=== PATIENT | female | born 1995 | race Caucasian/White ===

== ENCOUNTER 2017-10-27 12:53 | Inpatient (IN) ==
[2017-10-27] MEDS ORDERED: Ondansetron 4 MG/2 ML VIAL IVP ONE (13:13)
[2017-10-27] MEDS ORDERED: 0.9 % Sodium Chloride 1,000 ML ONE (13:14)
[2017-10-27] MEDS: 0.9 % Sodium Chloride 1,000 ML IVC SCH ×3 (13:18→20:04)
--- NOTE | 2017-10-27 13:18 | Emergency Department Note ---
Disposition Clinical Impression: DKA (diabetic ketoacidoses) Disposition: Admitted As Inpatient Condition: Fair General Adult HPI - General Chief complaint: ED Nausea/Vomiting/Diarrhea Stated complaint: DKA Time Seen by Provider: 10/27/17 13:00 - History of Present Illness Pain Scale: 0 - Related Data Home Medications Medication Instructions Recorded Confirmed Insulin ASPART [Novolog Flexpen] 0 unit SQ TID 11/26/15 10/27/17 Insulin Glargine,Hum.rec.anlog 50 unit SQ QPM 10/27/17 10/27/17 [Basaglar Kwikpen U-100] Allergies Allergy/AdvReac Type Severity Reaction Status Date / Time trazodone Allergy See Verified 11/26/15 09:51 Comments Past Medical History - Past Medical History Medical history: Reports: diabetes, GERD Psychiatric history: Reports: anxiety, ADHD, depression - Social History Smoking Status: Never smoker Alcohol use: Reports: none Drug use: Reports: none Course Vital Signs Temperature 97.8 F 10/27/17 12:55 Pulse Rate 136 10/27/17 12:55 Respiratory Rate 26 10/27/17 12:55 Blood Pressure 138/97 10/27/17 12:55 O2 Sat by Pulse Oximetry 96 10/27/17 12:55 Temperature 99.2 F 10/27/17 20:41 Pulse Rate 115 10/27/17 19:03 Respiratory Rate 18 10/27/17 19:03 Blood Pressure 121/83 10/27/17 19:03 O2 Sat by Pulse Oximetry 100 10/27/17 19:03 Oxygen Delivery Oxygen Delivery Room Air Medical Decision Making - Lab Data Result diagrams: 10/27/17 13:11 10/27/17 17:41 Lab Results 10/27/17 10/27/17 10/27/17 Range/Units 13:11 13:11 13:11 WBC 25.6 H (4.3-11.1) K/mcL RBC 4.76 (3.82-4.97) M/mcL Hgb 14.4 (11.5-15.4) g/dL Hct 46.5 H (35.3-44.9) % MCV 97.7 (83.0-100.0) fL MCH 30.3 (28.0-33.3) pg MCHC 31.0 L (31.6-35.5) g/dL RDW 13.2 (11.5-14.5) % Plt Count 690 H (140-400) K/mcL MPV 8.9 L (9.4-12.4) fL Seg Neutrophils % 72.0 % Band Neutrophils % 8.0 H (0-4) % Lymphocytes % 10.0 % Monocytes % 2.0 % Eosinophils % 2.0 % Metamyelocytes % 4.0 H (0) % Myelocytes % 2.0 H (0) % Neutrophils # 20.5 H (1.6-8.9) K/mcL Lymphocytes # 2.6 (0.6-4.6) K/mcL Monocytes # 0.5 (0.0-1.3) K/mcL Eosinophils # 0.5 (0.0-0.6) K/mcL Toxic Vacuolation Present A (Not Present) Platelet Estimate Marked Increase H (Normal) VBG pH (7.32-7.42) pH Units VBG pCO2 (41-51) mmHg VBG pO2 (25-50) mmHg VBG HCO3 (21-27) mEq/L Sodium 131 L (136-145) mEq/L Potassium 5.1 (3.5-5.1) mEq/L Chloride 97 L (98-107) mEq/L Carbon Dioxide 4 L* (23-29) mEq/L BUN 19 (6-20) mg/dL Creatinine 0.97 (0.60-1.20) mg/dL Est GFR ( Amer) > 60 (> 60) Est GFR (Non-Af Amer) > 60 (> 60) BUN/Creatinine Ratio 20 (6-26) Glucose 797 H* (70-105) mg/dL POC Glucose (70-99) mg/dL Est Mean Plasma Glucose mg/dl Hemoglobin A1c ( - 5.6) % Calculated Osmolality 313 H (280-300) Lactic Acid (0.5-2.2) mmol/L Calcium 9.0 (8.6-10.3) mg/dL Total Bilirubin 0.2 L (0.3-1.0) mg/dL AST 18 (13-39) Units/L ALT 35 (7-52) Units/L Alkaline Phosphatase 187 H (34-104) Units/L Serum Total Protein 8.2 (6.4-8.9) g/dL Albumin 4.6 (3.5-5.7) g/dL Globulin 3.6 H (2.4-3.5) g/dL Albumin/Globulin Ratio 1.3 (1.1-2.2) Beta-Hydroxybutyric Acd > 2.00 H (0.02-0.27) mmol/L Urine Color (Yellow) Urine Clarity (Clear) Urine pH (5.0-8.0) pH Units Ur Specific [place] (1.010-1.025) Urine Protein (Neg-Trace) mg/dL Urine Glucose (UA) (Normal) mg/dL Urine Ketones (Negative) mg/dL Urine Blood (Negative) Urine Nitrite (Negative) Urine Bilirubin (Negative) Urine Urobilinogen (Normal) mg/dL Ur Leukocyte Esterase (Negative) Urine Microscopic RBC (0-3) per hpf Urine Microscopic WBC (0-3) per hpf Ur Squamous Epith Cells (None-Few) per lpf Urine Bacteria (None-Few) per hpf Hyaline Casts (None-Few) per lpf Ur Culture Indicated? (NO) Person Notif of Crit 10/27/17 10/27/17 10/27/17 Range/Units 13:15 13:16 13:16 WBC (4.3-11.1) K/mcL RBC (3.82-4.97) M/mcL Hgb (11.5-15.4) g/dL Hct (35.3-44.9) % MCV (83.0-100.0) fL MCH (28.0-33.3) pg MCHC (31.6-35.5) g/dL RDW (11.5-14.5) % Plt Count (140-400) K/mcL MPV (9.4-12.4) fL Seg Neutrophils % % Band Neutrophils % (0-4) % Lymphocytes % % Monocytes % % Eosinophils % % Metamyelocytes % (0) % Myelocytes % (0) % Neutrophils # (1.6-8.9) K/mcL Lymphocytes # (0.6-4.6) K/mcL Monocytes # (0.0-1.3) K/mcL Eosinophils # (0.0-0.6) K/mcL Toxic Vacuolation (Not Present) Platelet Estimate (Normal) VBG pH (7.32-7.42) pH Units VBG pCO2 (41-51) mmHg VBG pO2 (25-50) mmHg VBG HCO3 (21-27) mEq/L Sodium (136-145) mEq/L Potassium (3.5-5.1) mEq/L Chloride (98-107) mEq/L Carbon Dioxide (23-29) mEq/L BUN (6-20) mg/dL Creatinine (0.60-1.20) mg/dL Est GFR ( Amer) (> 60) Est GFR (Non-Af Amer) (> 60) BUN/Creatinine Ratio (6-26) Glucose (70-105) mg/dL POC Glucose > 600 H* > 600 H* (70-99) mg/dL Est Mean Plasma Glucose mg/dl Hemoglobin A1c ( - 5.6) % Calculated Osmolality (280-300) Lactic Acid 1.3 (0.5-2.2) mmol/L Calcium (8.6-10.3) mg/dL Total Bilirubin (0.3-1.0) mg/dL AST (13-39) Units/L ALT (7-52) Units/L Alkaline Phosphatase (34-104) Units/L Serum Total Protein (6.4-8.9) g/dL Albumin (3.5-5.7) g/dL Globulin (2.4-3.5) g/dL Albumin/Globulin Ratio (1.1-2.2) Beta-Hydroxybutyric Acd (0.02-0.27) mmol/L Urine Color (Yellow) Urine Clarity (Clear) Urine pH (5.0-8.0) pH Units Ur Specific [place] (1.010-1.025) Urine Protein (Neg-Trace) mg/dL Urine Glucose (UA) (Normal) mg/dL Urine Ketones (Negative) mg/dL Urine Blood (Negative) Urine Nitrite (Negative) Urine Bilirubin (Negative) Urine Urobilinogen (Normal) mg/dL Ur Leukocyte Esterase (Negative) Urine Microscopic RBC (0-3) per hpf Urine Microscopic WBC (0-3) per hpf Ur Squamous Epith Cells (None-Few) per lpf Urine Bacteria (None-Few) per hpf Hyaline Casts (None-Few) per lpf Ur Culture Indicated? (NO) Person Notif of Crit 10/27/17 10/27/17 10/27/17 Range/Units 13:30 14:12 15:56 WBC (4.3-11.1) K/mcL RBC (3.82-4.97) M/mcL Hgb (11.5-15.4) g/dL Hct (35.3-44.9) % MCV (83.0-100.0) fL MCH (28.0-33.3) pg MCHC (31.6-35.5) g/dL RDW (11.5-14.5) % Plt Count (140-400) K/mcL MPV (9.4-12.4) fL Seg Neutrophils % % Band Neutrophils % (0-4) % Lymphocytes % % Monocytes % % Eosinophils % % Metamyelocytes % (0) % Myelocytes % (0) % Neutrophils # (1.6-8.9) K/mcL Lymphocytes # (0.6-4.6) K/mcL Monocytes # (0.0-1.3) K/mcL Eosinophils # (0.0-0.6) K/mcL Toxic Vacuolation (Not Present) Platelet Estimate (Normal) VBG pH 7.01 L* (7.32-7.42) pH Units VBG pCO2 14 L (41-51) mmHg VBG pO2 163 H (25-50) mmHg VBG HCO3 3 L (21-27) mEq/L Sodium (136-145) mEq/L Potassium (3.5-5.1) mEq/L Chloride (98-107) mEq/L Carbon Dioxide (23-29) mEq/L BUN (6-20) mg/dL Creatinine (0.60-1.20) mg/dL Est GFR ( Amer) (> 60) Est GFR (Non-Af Amer) (> 60) BUN/Creatinine Ratio (6-26) Glucose (70-105) mg/dL POC Glucose 422 H* (70-99) mg/dL Est Mean Plasma Glucose mg/dl Hemoglobin A1c ( - 5.6) % Calculated Osmolality (280-300) Lactic Acid (0.5-2.2) mmol/L Calcium (8.6-10.3) mg/dL Total Bilirubin (0.3-1.0) mg/dL AST (13-39) Units/L ALT (7-52) Units/L Alkaline Phosphatase (34-104) Units/L Serum Total Protein (6.4-8.9) g/dL Albumin (3.5-5.7) g/dL Globulin (2.4-3.5) g/dL Albumin/Globulin Ratio (1.1-2.2) Beta-Hydroxybutyric Acd (0.02-0.27) mmol/L Urine Color Yellow (Yellow) Urine Clarity Clear (Clear) Urine pH 5.5 (5.0-8.0) pH Units Ur Specific [place] 1.029 H (1.010-1.025) Urine Protein 30 H (Neg-Trace) mg/dL Urine Glucose (UA) >=1000 H (Normal) mg/dL Urine Ketones >=160 H (Negative) mg/dL Urine Blood Negative (Negative) Urine Nitrite Negative (Negative) Urine Bilirubin Negative (Negative) Urine Urobilinogen Normal (Normal) mg/dL Ur Leukocyte Esterase Negative (Negative) Urine Microscopic RBC 0-3 (0-3) per hpf Urine Microscopic WBC 0-3 (0-3) per hpf Ur Squamous Epith Cells Moderate H (None-Few) per lpf Urine Bacteria None Seen (None-Few) per hpf Hyaline Casts None Seen (None-Few) per lpf Ur Culture Indicated? NO (NO) Person Notif of Gonzalo weston shelly 10/27/17 Range/Units 17:07 WBC (4.3-11.1) K/mcL RBC (3.82-4.97) M/mcL Hgb (11.5-15.4) g/dL Hct (35.3-44.9) % MCV (83.0-100.0) fL MCH (28.0-33.3) pg MCHC (31.6-35.5) g/dL RDW (11.5-14.5) % Plt Count (140-400) K/mcL MPV (9.4-12.4) fL Seg Neutrophils % % Band Neutrophils % (0-4) % Lymphocytes % % Monocytes % % Eosinophils % % Metamyelocytes % (0) % Myelocytes % (0) % Neutrophils # (1.6-8.9) K/mcL Lymphocytes # (0.6-4.6) K/mcL Monocytes # (0.0-1.3) K/mcL Eosinophils # (0.0-0.6) K/mcL Toxic Vacuolation (Not Present) Platelet Estimate (Normal) VBG pH (7.32-7.42) pH Units VBG pCO2 (41-51) mmHg VBG pO2 (25-50) mmHg VBG HCO3 (21-27) mEq/L Sodium (136-145) mEq/L Potassium (3.5-5.1) mEq/L Chloride (98-107) mEq/L Carbon Dioxide (23-29) mEq/L BUN (6-20) mg/dL Creatinine (0.60-1.20) mg/dL Est GFR ( Amer) (> 60) Est GFR (Non-Af Amer) (> 60) BUN/Creatinine Ratio (6-26) Glucose (70-105) mg/dL POC Glucose (70-99) mg/dL Est Mean Plasma Glucose 346 mg/dl Hemoglobin A1c 13.7 H ( - 5.6) % Calculated Osmolality (280-300) Lactic Acid (0.5-2.2) mmol/L Calcium (8.6-10.3) mg/dL Total Bilirubin (0.3-1.0) mg/dL AST (13-39) Units/L ALT (7-52) Units/L Alkaline Phosphatase (34-104) Units/L Serum Total Protein (6.4-8.9) g/dL Albumin (3.5-5.7) g/dL Globulin (2.4-3.5) g/dL Albumin/Globulin Ratio (1.1-2.2) Beta-Hydroxybutyric Acd (0.02-0.27) mmol/L Urine Color (Yellow) Urine Clarity (Clear) Urine pH (5.0-8.0) pH Units Ur Specific [place] (1.010-1.025) Urine Protein (Neg-Trace) mg/dL Urine Glucose (UA) (Normal) mg/dL Urine Ketones (Negative) mg/dL Urine Blood (Negative) Urine Nitrite (Negative) Urine Bilirubin (Negative) Urine Urobilinogen (Normal) mg/dL Ur Leukocyte Esterase (Negative) Urine Microscopic RBC (0-3) per hpf Urine Microscopic WBC (0-3) per hpf Ur Squamous Epith Cells (None-Few) per lpf Urine Bacteria (None-Few) per hpf Hyaline Casts (None-Few) per lpf Ur Culture Indicated? (NO) Person Notif of Crit Critical Care Time Critical Care Time: Yes Total Critical Care Time: 40 Attestation: Critical care performed: Time is exclusive of separately billable procedures. Time includes: direct patient care, patient reassessment, coordination of patient care, interpretation of data (laboratory data, radiology data, and respiratory data), review of patient's medical records, medical consultation and documentation of patient care. Procedures included in critical care time: Procedures excluded from critical care time: Attestation Statement - Attestation Attestation: I examined this patient and my medical decision-making was reviewed with the Resident Physician. I agree with the documented findings, disposition and treatment plan as described except to the extent set forth below. Patient presents to the ED with a chief complaint of being in DKA. Her blood sugars are running high for 2 days. She started hallucinating last night. Last admission was recently but family cannot state when. At [facility]. On examination she is laying in bed in no distress. She is tachypneic. She does answer questions appropriately. Denies fever. Plan. DKA workup. Starting IV fluids at this time. Likely admission. PH 7.01. Starting insulin drip. Leukocytosis likely reactive. We will check blood culture chest x-ray and a UA.
[2017-10-27 13:29] LABS: Mean Platelet Volume 8.9 fL (9.4-12.4); Red Cell Distribution Width 13.2 % (11.5-14.5)
[2017-10-27 13:31] LABS: Hematocrit 46.5 % (35.3-44.9); Hemoglobin 14.4 g/dL (11.5-15.4); Mean Corpuscular Hemoglobin 30.3 pg (28.0-33.3); Mean Corpuscular Volume 97.7 fL (83.0-100.0); Platelet Count 690 K/mcL (140-400); Red Blood Count 4.76 M/mcL (3.82-4.97)
[2017-10-27 13:49] LABS: VBG HCO3 3 mEq/L (21-27); VBG PCO2 14 mmHg (41-51); VBG PH 7.01 pH Units (7.32-7.42); VBG PO2 163 mmHg (25-50)
[2017-10-27] MEDS ORDERED: *HR* Dextrose 50 % in Water (Syg) 50 ML SYRINGE IVP PRN ×2 (13:51→17:04)
[2017-10-27] MEDS ORDERED: Insulin Regular, Human 100 UNIT/ML IV ONE (13:51)
[2017-10-27 13:53] LABS: Eosinophils # 0.5 K/mcL (0.0-0.6); Lymphocytes # 2.6 K/mcL (0.6-4.6); Monocytes # 0.5 K/mcL (0.0-1.3); Neutrophils # 20.5 K/mcL (1.6-8.9); Toxic Vacuolation Present (Not Present)
[2017-10-27 13:54] LABS: Platelet Estimate Marked Increase (Normal)
[2017-10-27 13:57] LABS: Alanine Aminotransferase 35 Units/L (7-52); Albumin 4.6 g/dL (3.5-5.7); Albumin/Globulin Ratio 1.3 (1.1-2.2); Alkaline Phosphatase 187 Units/L (34-104); Aspartate Amino Transferase 18 Units/L (13-39); BUN/Creatinine Ratio 20 (6-26); Bilirubin,Total 0.2 mg/dL (0.3-1.0); Blood Urea Nitrogen 19 mg/dL (6-20); Carbon Dioxide 4 mEq/L (23-29); Chloride 97 mEq/L (98-107); Globulin 3.6 g/dL (2.4-3.5); Glucose 797 mg/dL (70-105); Osmolality,Calculated 313 (280-300); Potassium 5.1 mEq/L (3.5-5.1); Sodium 131 mEq/L (136-145); Total Protein 8.2 g/dL (6.4-8.9); eGFR For African Americans > 60 (> 60); eGFR For Non-African Americans > 60 (> 60)
[2017-10-27 14:24] LABS: Bilirubin,Urine Negative (Negative); Blood,Urine Negative (Negative); Clarity,Urine Clear (Clear); Color,Urine Yellow (Yellow); Glucose,Urine (UA) >=1000 mg/dL (Normal); Ketones,Urine >=160 mg/dL (Negative); Leukocyte Esterase,Urine Negative (Negative); Nitrite,Urine Negative (Negative); PH,Urine 5.5 pH Units (5.0-8.0); Protein,Urine 30 mg/dL (Neg-Trace); Specific Gravity,Urine 1.029 (1.010-1.025); Urobilinogen,Urine Normal (Normal)
[2017-10-27 14:26] LABS: Bacteria,Urine None Seen per hpf (None-Few); Hyaline Casts,Urine None Seen per lpf (None-Few); RBC,Urine 0-3 per hpf (0-3); Squamous Epithelial Cell,Urine Moderate per lpf (None-Few); WBC,Urine 0-3 per hpf (0-3)
--- NOTE | 2017-10-27 14:34 | Emergency Department Note ---
Disposition Clinical Impression: DKA (diabetic ketoacidoses) Qualifiers: Diabetes mellitus type: type 1 Diabetes mellitus complication detail: without coma Qualified Code(s): E10.10 - Type 1 diabetes mellitus with ketoacidosis without coma Disposition: Admitted As Inpatient Condition: Fair Referrals: Leana Peck CNP [Primary Care Provider] - Forms: ED Satisfaction Letter Time of Disposition: 14:39 Nausea/Vomiting/Diarrhea HPI - General Chief complaint: ED Nausea/Vomiting/Diarrhea Stated complaint: DKA Time Seen by Provider: 10/27/17 13:00 Source: patient, family (Mom) Mode of arrival: ambulatory Limitations: no limitations Nursing Notes Reviewed: Yes Vital Signs Reviewed: Yes - History of Present Illness HPI Narrative: 22-year-old female history of type I insulin-dependent diabetes mellitus presents emergency department for elevated blood sugar. Patient reports over the past 2 days she has had high blood glucose readings. Today she is been gradually more nauseated with some abdominal pain. She tested her ketones in the was positive. There concern for diabetic ketoacidosis. She has required a prior admission, most recent month ago at outside facility. Patient denies any fever or cough. She typically carb counts a once every 4. She takes about 40 units of basal insulin. She admits to a poor diabetic diet. Her glucose today red high. It has been reading high for the past 2 days as well. Denies any urinary symptoms. Denies any injury or trauma. Patient is having Kussmaul breathing. Pt Subjective Complaint: nausea, abdominal pain - Related Data Home Medications Medication Instructions Recorded Confirmed Albuterol Sulfate [Ventolin Hfa] 2 puff IH Q4-6H PRN 11/26/15 11/26/15 Cyanocobalamin (Vitamin B-12) 1,000 mcg PO DAILY 11/26/15 11/26/15 [Vitamin B12] Escitalopram [Lexapro] 10 mg PO DAILY 11/26/15 11/26/15 Famotidine [Pepcid] 20 mg PO BID 11/26/15 11/26/15 Insulin ASPART [Novolog Flexpen] 0 unit SQ AD 11/26/15 11/26/15 Lisinopril 2.5 mg PO DAILY 11/26/15 11/26/15 Ondansetron [Zofran] 8 mg PO Q8HR PRN 11/26/15 11/26/15 Previous Rx's Medication Instructions Recorded Escitalopram [Lexapro] 5 mg PO DAILY tablet 11/27/15 Insulin DETEMIR [Levemir] 25 unit SQ BID [id number] 11/27/15 valACYclovir [Valtrex] 1,000 mg PO BID tablet 11/27/15 Ondansetron ODT [Zofran ODT] 4 mg SL Q6HR PRN #20 tab.rapdis 07/22/17 Allergies Allergy/AdvReac Type Severity Reaction Status Date / Time trazodone Allergy See Verified 11/26/15 09:51 Comments All systems ED: reviewed and negative except as stated. Review of Systems: As Per HPI Constitutional: Denies: fever, chills ENT ED: Denies: congestion Cardiovascular: Denies: chest pain Respiratory: Denies: cough, dyspnea Gastrointestinal: Reports: abdominal pain, nausea, vomiting Genitourinary: Denies: urgency, dysuria Musculoskeletal: Denies: back pain Integumentary: Denies: rash, abrasion Past Medical History - Past Medical History Attestation: Yes The following information was validated with the patient. Source: patient Medical history: Reports: diabetes, GERD Psychiatric history: Reports: anxiety, ADHD, depression - Social History Smoking Status: Never smoker Alcohol use: Reports: none Drug use: Reports: none Physical Exam - General Limitations: no limitations General appearance: alert, in distress (Kussmaul respirations) - Head Head exam: atraumatic, normocephalic, normal inspection - Eye Eye exam: Present: normal appearance, PERRL, EOMI - ENT ENT exam: normal exam, normal oropharynx, mucous membranes moist - Neck Neck exam: Present: normal inspection, full ROM, trachea midline. Absent: tenderness, meningismus - Chest Chest inspection: Present: normal inspection, symmetric chest wall rise - Respiratory Respiratory exam: Present: normal lung sounds bilaterally, respiratory distress (Kussmaul respiration). Absent: wheezes - Cardiovascular Cardiovascular exam: Present: normal rhythm, tachycardia, normal heart sounds - Abdominal Exam Abdominal exam: Present: soft, tenderness, normal bowel sounds. Absent: distention, guarding, rebound, rigidity Abdominal tenderness: Present: diffuse - Extremities Exam Extremities exam: Present: normal inspection, full ROM, normal capillary refill. Absent: tenderness, pedal edema, calf tenderness - Back Exam Back exam: Present: normal inspection, full ROM. Absent: tenderness - Neurological Exam Neurological exam: Present: alert, oriented X3 - Psychiatric Psychiatric exam: Present: normal affect, normal mood - Skin Skin exam: Present: warm, dry, intact, normal color. Absent: rash, cyanosis, diaphoresis Course Course Narrative: Patient presents with Kussmaul respirations and elevated glucose at home. Concerning for DKA. Will initiate IV fluid check some labs for suspected diabetic ketoacidosis. She denies any recent illness. Patient has required admission recently for similar symptoms. Anticipate likely admission. - Reevaluation(s) Reevaluation #1: Glucose 797. Metabolic acidosis anion gap 30. Bicarbonates low at 3. Potassium is near normal 5.1. Patient has been given to liter normal saline bolus and will be initiated on insulin drip with bolus. She reports improvement of her nausea after Zofran. She continues to display Kussmaul respirations. Her leukocytosis is 25 and likely reactive, she is afebrile and slightly tachycardic we will evaluate with blood culture, chest x-ray and urinalysis to rule out possible infection. Suspect DKA likely secondary to noncompliance. Patient will require admission. Time: 14:38 - Consultations Consultation #1: Spoke with on-call hospitalist kindra Deluca to admit for DKA. He is aware of the severe metabolic acidosis with bicarb lesson 4, recommend to give multiple amps of Bicarb. Since otherwise stable for step down unit 2N. She continues to have Kussmaul respirations but is awake and alert. Time: 15:12 Vital Signs Temperature 97.8 F 10/27/17 12:55 Pulse Rate 136 10/27/17 12:55 Respiratory Rate 26 10/27/17 12:55 Blood Pressure 138/97 10/27/17 12:55 O2 Sat by Pulse Oximetry 96 10/27/17 12:55 Temperature 97.8 F 10/27/17 15:03 Pulse Rate 131 10/27/17 15:03 Respiratory Rate 26 10/27/17 15:03 Blood Pressure 142/81 10/27/17 15:03 O2 Sat by Pulse Oximetry 97 10/27/17 15:03 Oxygen Delivery Oxygen Delivery Room Air Nausea/Vomiting/Diarrhea - MDM Narrative Medical decision making narrative: Patient was discussed with my attending physician who agrees with ED management and final disposition. They independently evaluated the patient. Please refer to their attestation to this encounter for additional information. This note was generated by [employer] voice recognition software and as a result grammatical or spelling errors may occur using this program. - Medical Records Medical records reviewed: Yes I reviewed the patient's medical records. - Lab Data Lab results reviewed: Yes I reviewed the patient's lab results. Result diagrams: 10/27/17 13:11 10/27/17 13:11 Lab Results 10/27/17 10/27/17 10/27/17 Range/Units 13:11 13:11 13:11 WBC 25.6 H (4.3-11.1) K/mcL RBC 4.76 (3.82-4.97) M/mcL Hgb 14.4 (11.5-15.4) g/dL Hct 46.5 H (35.3-44.9) % MCV 97.7 (83.0-100.0) fL MCH 30.3 (28.0-33.3) pg MCHC 31.0 L (31.6-35.5) g/dL RDW 13.2 (11.5-14.5) % Plt Count 690 H (140-400) K/mcL MPV 8.9 L (9.4-12.4) fL Seg Neutrophils % 72.0 % Band Neutrophils % 8.0 H (0-4) % Lymphocytes % 10.0 % Monocytes % 2.0 % Eosinophils % 2.0 % Metamyelocytes % 4.0 H (0) % Myelocytes % 2.0 H (0) % Neutrophils # 20.5 H (1.6-8.9) K/mcL Lymphocytes # 2.6 (0.6-4.6) K/mcL Monocytes # 0.5 (0.0-1.3) K/mcL Eosinophils # 0.5 (0.0-0.6) K/mcL Toxic Vacuolation Present A (Not Present) Platelet Estimate Marked Increase H (Normal) VBG pH (7.32-7.42) pH Units VBG pCO2 (41-51) mmHg VBG pO2 (25-50) mmHg VBG HCO3 (21-27) mEq/L Sodium 131 L (136-145) mEq/L Potassium 5.1 (3.5-5.1) mEq/L Chloride 97 L (98-107) mEq/L Carbon Dioxide 4 L* (23-29) mEq/L BUN 19 (6-20) mg/dL Creatinine 0.97 (0.60-1.20) mg/dL Est GFR ( Amer) > 60 (> 60) Est GFR (Non-Af Amer) > 60 (> 60) BUN/Creatinine Ratio 20 (6-26) Glucose 797 H* (70-105) mg/dL Calculated Osmolality 313 H (280-300) Lactic Acid (0.5-2.2) mmol/L Calcium 9.0 (8.6-10.3) mg/dL Total Bilirubin 0.2 L (0.3-1.0) mg/dL AST 18 (13-39) Units/L ALT 35 (7-52) Units/L Alkaline Phosphatase 187 H (34-104) Units/L Serum Total Protein 8.2 (6.4-8.9) g/dL Albumin 4.6 (3.5-5.7) g/dL Globulin 3.6 H (2.4-3.5) g/dL Albumin/Globulin Ratio 1.3 (1.1-2.2) Beta-Hydroxybutyric Acd > 2.00 H (0.02-0.27) mmol/L Urine Color (Yellow) Urine Clarity (Clear) Urine pH (5.0-8.0) pH Units Ur Specific [place] (1.010-1.025) Urine Protein (Neg-Trace) mg/dL Urine Glucose (UA) (Normal) mg/dL Urine Ketones (Negative) mg/dL Urine Blood (Negative) Urine Nitrite (Negative) Urine Bilirubin (Negative) Urine Urobilinogen (Normal) mg/dL Ur Leukocyte Esterase (Negative) Urine Microscopic RBC (0-3) per hpf Urine Microscopic WBC (0-3) per hpf Ur Squamous Epith Cells (None-Few) per lpf Urine Bacteria (None-Few) per hpf Hyaline Casts (None-Few) per lpf Ur Culture Indicated? (NO) Person Notif of Crit 10/27/17 10/27/17 10/27/17 Range/Units 13:16 13:30 14:12 WBC (4.3-11.1) K/mcL RBC (3.82-4.97) M/mcL Hgb (11.5-15.4) g/dL Hct (35.3-44.9) % MCV (83.0-100.0) fL MCH (28.0-33.3) pg MCHC (31.6-35.5) g/dL RDW (11.5-14.5) % Plt Count (140-400) K/mcL MPV (9.4-12.4) fL Seg Neutrophils % % Band Neutrophils % (0-4) % Lymphocytes % % Monocytes % % Eosinophils % % Metamyelocytes % (0) % Myelocytes % (0) % Neutrophils # (1.6-8.9) K/mcL Lymphocytes # (0.6-4.6) K/mcL Monocytes # (0.0-1.3) K/mcL Eosinophils # (0.0-0.6) K/mcL Toxic Vacuolation (Not Present) Platelet Estimate (Normal) VBG pH 7.01 L* (7.32-7.42) pH Units VBG pCO2 14 L (41-51) mmHg VBG pO2 163 H (25-50) mmHg VBG HCO3 3 L (21-27) mEq/L Sodium (136-145) mEq/L Potassium (3.5-5.1) mEq/L Chloride (98-107) mEq/L Carbon Dioxide (23-29) mEq/L BUN (6-20) mg/dL Creatinine (0.60-1.20) mg/dL Est GFR ( Amer) (> 60) Est GFR (Non-Af Amer) (> 60) BUN/Creatinine Ratio (6-26) Glucose (70-105) mg/dL Calculated Osmolality (280-300) Lactic Acid 1.3 (0.5-2.2) mmol/L Calcium (8.6-10.3) mg/dL Total Bilirubin (0.3-1.0) mg/dL AST (13-39) Units/L ALT (7-52) Units/L Alkaline Phosphatase (34-104) Units/L Serum Total Protein (6.4-8.9) g/dL Albumin (3.5-5.7) g/dL Globulin (2.4-3.5) g/dL Albumin/Globulin Ratio (1.1-2.2) Beta-Hydroxybutyric Acd (0.02-0.27) mmol/L Urine Color Yellow (Yellow) Urine Clarity Clear (Clear) Urine pH 5.5 (5.0-8.0) pH Units Ur Specific [place] 1.029 H (1.010-1.025) Urine Protein 30 H (Neg-Trace) mg/dL Urine Glucose (UA) >=1000 H (Normal) mg/dL Urine Ketones >=160 H (Negative) mg/dL Urine Blood Negative (Negative) Urine Nitrite Negative (Negative) Urine Bilirubin Negative (Negative) Urine Urobilinogen Normal (Normal) mg/dL Ur Leukocyte Esterase Negative (Negative) Urine Microscopic RBC 0-3 (0-3) per hpf Urine Microscopic WBC 0-3 (0-3) per hpf Ur Squamous Epith Cells Moderate H (None-Few) per lpf Urine Bacteria None Seen (None-Few) per hpf Hyaline Casts None Seen (None-Few) per lpf Ur Culture Indicated? NO (NO) Person Notif of Gonzalo bravo - Radiology Data Radiology results reviewed: Yes I reviewed the patient's radiology results. Chest X-Ray 10/27/17 14:00 IMPRESSION: No acute cardiopulmonary disease D/ / Regan Jose MD / Regan Jose MD Interpreting Provider: Regan Jose MD
[2017-10-27] MEDS: Insulin Human Regular 100 UNIT in 0.9 % Sodium Chloride 100 ML IVC SCH (14:39)
[2017-10-27] MEDS ORDERED: Sodium Bicarbonate 50 MEQ/50 ML VIAL IVP ONE (15:11)
[2017-10-27] MEDS ORDERED: Insulin Regular, Human 100 UNIT/ML IV PRN (17:04)
[2017-10-27] MEDS ORDERED: D5% in 0.45% NACL 1,000 ML IVC PRN (17:04)
[2017-10-27] MEDS ORDERED: Naloxone 0.4 MG/ML INJ IVP PRN (17:09)
[2017-10-27] MEDS ORDERED: *HR* Promethazine 25 MG/ML VIAL IVP PRN (17:09)
[2017-10-27] MEDS ORDERED: *HR* HYDROcodone/Acet 5/325 mg TABLET PO PRN (17:09)
[2017-10-27] MEDS ORDERED: Acetaminophen 325 MG TABLET PO PRN (17:09)
[2017-10-27] MEDS ORDERED: *HR* OxyCODONE Immed Rel 5 MG TABLET PO PRN (17:09)
[2017-10-27] MEDS ORDERED: Ondansetron 4 MG/2 ML VIAL IVP PRN (17:09)
[2017-10-27 18:02] LABS: Estimated Average Glucose 346 mg/dl; Hemoglobin A1C 13.7 %
[2017-10-27 18:11] LABS: BUN/Creatinine Ratio 20 (6-26); Blood Urea Nitrogen 17 mg/dL (6-20); Calcium 8.3 mg/dL (8.6-10.3); Carbon Dioxide 3 mEq/L (23-29); Chloride 114 mEq/L (98-107); Glucose 179 mg/dL (70-105); Magnesium 2.2 mg/dL (1.6-2.6); Osmolality,Calculated 298 (280-300); Phosphorous 2.8 mg/dL (2.7-4.5); Potassium 4.7 mEq/L (3.5-5.1); Sodium 141 mEq/L (136-145); eGFR For African Americans > 60 (> 60); eGFR For Non-African Americans > 60 (> 60)
--- NOTE | 2017-10-27 18:32 | Internal Med History&Physical ---
Date of Encounter: 10/27/17 Time of Encounter: 17:20 Internal Medicine - H&P: HPI Chief complaint: Abdominal pain , N/V Admitted From: Emergency Dept Plans for Post Hospital Care: Home History of present illness: Ms. Dc is a 22 year old female with known DM1 dx when she was 13 y/o, who had multiple hospitlaizations with DKA, recently 2 weeks ago at 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 pt is alert, awake and O x 3. She does look very weak and lethargic. Denied any CP. Does c/o generalized body pains and soreness. Past Med Surg Social Fam HX - Past Medical History Medical history: diabetes, GERD Additional medical history: Type 1 diabetic Psychiatric history: anxiety, ADHD, depression - Social History Smoking Status: Never smoker Alcohol use: none Drug use: none - Additional Family History Additional family history: Grandmother had diabetes. biological mother have diabetes Internal Medicine - H&P: Meds Insulin ASPART [Novolog Flexpen] 0 unit SQ TID 11/26/15 [History] Insulin Glargine,Hum.rec.anlog [Basaglar Kwikpen U-100] 50 unit SQ QPM 10/27/17 [History] 3 Allergy/AdvReac Type Severity Reaction Status Date / Time trazodone Allergy See Verified 11/26/15 09:51 Comments All Systems PM: A 10-system review of systems was performed and is negative for pertinent findings except as documented above in the HPI. Review of systems: All the systems are reviewed everything is benign except the systems and symptoms I mentioned in the history of present illness - Constitutional Vitals: Temp Pulse Resp BP Pulse Ox 98.3 F 130 18 111/71 100 10/27/17 16:29 10/27/17 16:29 10/27/17 17:45 10/27/17 17:45 10/27/17 16:29 General appearance: Present: mild distress, A&O X 3, answers questions appropriately - Head Head exam: Present: atraumatic, normal inspection - Neck Neck exam general surgery: Present: supple - Respiratory Respiratory exam: Present: decreased breath sounds. Absent: rales, respiratory distress, rhonchi, wheezes - Cardiovascular Cardiovascular exam: Present: RRR, +S1, +S2. Absent: tachycardia - GI/Abdominal GI/Abdominal exam: Present: normal bowel sounds, soft. Absent: rebound, rigid, tenderness - Extremities Exam Extremities exam: Absent: calf tenderness, pedal edema, tenderness - Back Exam Back exam: Absent: CVA tenderness (L), CVA tenderness (R) - Neurological Exam Neurological exam: Present: alert, oriented X3 - Psychiatric Psychiatric exam: Present: anxious - Skin Skin exam: Present: dry Internal Med - H&P Results - Labs CBC & Chem 7: 10/27/17 13:11 10/27/17 17:41 Labs: BMP 10/27/17 17:41 Sodium 141 D Potassium 4.7 Chloride 114 H Carbon Dioxide 3 L* BUN 17 Creatinine 0.86 Glucose 179 H Calcium 8.3 L - Assessment and plan (1) DKA (diabetic ketoacidoses) Current Visit: Yes Status: Acute Assessment and plan: Admit the pt into step down unit She does have severe metabolic acidosis her Hco3 level @ 3 Ph; 7.01 2 amp IV NahCo3 give in the ER her repeat BMP now showed still very low Co2 will start her on NaHCo3 gtt for now Cont Insulin gtt Cont aggressive IV hydration continue checking electrolytes Q4 hrly Cont close monitoring Does need higher level and critical care Talked to pt's mother at bed side and explained to her about current care Qualifiers: Diabetes mellitus type: type 1 Diabetes mellitus complication detail: without coma Qualified Code(s): E10.10 - Type 1 diabetes mellitus with ketoacidosis without coma (2) Metabolic acidosis due to diabetes mellitus Current Visit: Yes Status: Acute Assessment and plan: Continue IV hydration since her Hco3 has not improved much will start her on Hco3 gtt x 1 bag (3) Uncontrolled diabetes mellitus Current Visit: Yes Status: Acute Assessment and plan: Seems to be noncompliance with her insulin educated and counseled the pt about compliance with her insulin since pt is working night shifts, which might affecting her eating habits and insulin intake so counseled the pt to switch to different job will check hemoglobin A-1 C Qualifiers: Diabetes mellitus type: type 1 Diabetes mellitus complication status: without complication Qualified Code(s): E10.65 - Type 1 diabetes mellitus with hyperglycemia (4) Leucocytosis Current Visit: No Status: Acute Assessment and plan: Mostly reactive urine is completely benign Qualifiers: Leukocytosis type: unspecified Qualified Code(s): D72.829 - Elevated white blood cell count, unspecified - Time Spent With Patient Total time spent is greater than 50% in coordination of care (as documented) at patient's floor/unit and/or counseling patient:
[2017-10-27] MEDS ORDERED: Sodium Bicarbonate 75 MEQ in D5% in 0.45% NACL 1,000 ML IVC SCH (18:45)
[2017-10-27] MEDS: D5% in 0.45% NACL w KCl 20 MEQ/1,000 ML MLS IVC PRN (19:17)
[2017-10-27 21:50] LABS: ABG Base Excess -12 mEq/L (-2 to 3); ABG HCO3 12 mEq/L (21-27); ABG Oxygen Saturation 98 % (95-98); ABG PCO2 21 mmHg (35-45); ABG PH 7.35 pH Units (7.32-7.45); ABG PO2 114 mmHg (85-104); ABG TCO2 12 mEq/L (20-26)
[2017-10-27 21:54] LABS: BUN/Creatinine Ratio 22 (6-26); Blood Urea Nitrogen 15 mg/dL (6-20); Calcium 7.9 mg/dL (8.6-10.3); Carbon Dioxide 10 mEq/L (23-29); Chloride 110 mEq/L (98-107); Glucose 104 mg/dL (70-105); Osmolality,Calculated 291 (280-300); Sodium 140 mEq/L (136-145); eGFR For African Americans > 60 (> 60); eGFR For Non-African Americans > 60 (> 60)
[2017-10-28] MEDS ORDERED: 0.9 % Sodium Chloride w KCl 20 MEQ/1,000 ML MLS IVC ONE (00:03)
[2017-10-28] MEDS: D5% in 0.45% NACL w KCl 20 MEQ/1,000 ML MLS IVC PRN ×3 (00:23→08:51)
[2017-10-28 02:13] LABS: Amphetamine Screen,Urine Negative ng/mL (Cutoff=1000); Barbiturate Screen,Urine Negative ng/mL (Cutoff=200); Benzodiazepines Screen,Urine Negative ng/mL (Cutoff=200); Cannabinoid Screen,Urine Negative ng/mL (Cutoff = 50); Cocaine Screen,Urine Negative ng/mL (Cutoff= 300); Opiate Screen,Urine Negative ng/mL (Cutoff=300); Phencyclidine Screen,Urine Negative ng/mL (Cutoff=25)
[2017-10-28 02:47] LABS: BUN/Creatinine Ratio 15 (6-26); Blood Urea Nitrogen 11 mg/dL (6-20); Calcium 7.9 mg/dL (8.6-10.3); Carbon Dioxide 13 mEq/L (23-29); Chloride 111 mEq/L (98-107); Glucose 123 mg/dL (70-105); Osmolality,Calculated 287 (280-300); Potassium 3.3 mEq/L (3.5-5.1); Sodium 138 mEq/L (136-145); eGFR For African Americans > 60 (> 60); eGFR For Non-African Americans > 60 (> 60)
[2017-10-28 02:51] LABS: Magnesium 1.9 mg/dL (1.6-2.6); Phosphorous < 1.0 mg/dL (2.7-4.5)
[2017-10-28] MEDS ORDERED: Potassium Phosphate 44 MEQ in 0.9 % Sodium Chloride 250 ML IVPB ONE (02:54)
[2017-10-28 04:57] LABS: Basophils # 0.1 K/mcL (0.0-0.2); Basophils % 0.5 %; Eosinophils % 0.2 %; Hematocrit 32.5 % (35.3-44.9); Immature Granulocytes % 1.3 % (0-4); Lymphocytes # 3.7 K/mcL (0.6-4.6); Lymphocytes % 22.1 %; Mean Corpuscular HGB Conc 33.2 g/dL (31.6-35.5); Mean Corpuscular Hemoglobin 30.7 pg (28.0-33.3); Mean Corpuscular Volume 92.3 fL (83.0-100.0); Mean Platelet Volume 8.5 fL (9.4-12.4); Monocytes # 1.5 K/mcL (0.0-1.3); Monocytes % 8.8 %; Neutrophils # 11.1 K/mcL (1.6-8.9); Platelet Count 485 K/mcL (140-400); Red Blood Count 3.52 M/mcL (3.82-4.97); Red Cell Distribution Width 13.5 % (11.5-14.5); Segmented Neutrophils % 67.1 %
[2017-10-28 05:03] LABS: Alanine Aminotransferase 21 Units/L (7-52); Albumin 3.1 g/dL (3.5-5.7); Albumin/Globulin Ratio 1.3 (1.1-2.2); Alkaline Phosphatase 109 Units/L (34-104); Aspartate Amino Transferase 14 Units/L (13-39); BUN/Creatinine Ratio 17 (6-26); Bilirubin,Total 0.3 mg/dL (0.3-1.0); Blood Urea Nitrogen 11 mg/dL (6-20); Calcium 7.5 mg/dL (8.6-10.3); Carbon Dioxide 13 mEq/L (23-29); Chloride 110 mEq/L (98-107); Globulin 2.4 g/dL (2.4-3.5); Glucose 187 mg/dL (70-105); Osmolality,Calculated 282 (280-300); Potassium 3.6 mEq/L (3.5-5.1); Sodium 134 mEq/L (136-145); Total Protein 5.5 g/dL (6.4-8.9); eGFR For African Americans > 60 (> 60); eGFR For Non-African Americans > 60 (> 60)
[2017-10-28 05:07] LABS: Hemoglobin 10.8 g/dL (11.5-15.4)
[2017-10-28] MEDS: *HR* Enoxaparin 40 MG/0.4 ML SYRINGE SQ SCH (05:30)
[2017-10-28] MEDS: Insulin Human Regular 100 UNIT in 0.9 % Sodium Chloride 100 ML IVC SCH (07:25)
[2017-10-28 10:22] LABS: BUN/Creatinine Ratio 16 (6-26); Blood Urea Nitrogen 9 mg/dL (6-20); Calcium 7.3 mg/dL (8.6-10.3); Carbon Dioxide 17 mEq/L (23-29); Chloride 112 mEq/L (98-107); Glucose 110 mg/dL (70-105); Osmolality,Calculated 281 (280-300); Potassium 3.6 mEq/L (3.5-5.1); Sodium 136 mEq/L (136-145); eGFR For African Americans > 60 (> 60); eGFR For Non-African Americans > 60 (> 60)
[2017-10-28 10:36] LABS: Magnesium 1.7 mg/dL (1.6-2.6)
[2017-10-28] MEDS ORDERED: Dextrose Gel 15 GM/37.5 ML TUBE PO PRN ×2 (11:15)
[2017-10-28] MEDS ORDERED: *HR* Dextrose 50 % in Water (Syg) 50 ML SYRINGE IVP PRN (11:15)
[2017-10-28] MEDS ORDERED: D5% in Water 1,000 ML IVC PRN (11:15)
[2017-10-28] MEDS ORDERED: Insulin DETEMIR 100 UNIT/ML X5UNITS SQ ONE ×2 (11:17→21:00)
[2017-10-28] MEDS: Insulin LISPRO 300 UNITS/3 ML VIAL SQ SCH ×2 (11:36→16:33)
--- NOTE | 2017-10-28 16:26 | Internal Med Progress Note ---
Date of Encounter: 10/28/17 Time of Encounter: 16:23 - Assessment and plan (1) DKA (diabetic ketoacidoses) Current Visit: Yes Status: Acute Assessment and plan: Continue diabetic diet. Continue home long acting insulin. Continue accuchecks and high dose SSI QID AC/HS. Encouraged PO hydration. Recheck BMP in AM. Qualifiers: Diabetes mellitus type: type 1 Diabetes mellitus complication detail: without coma Qualified Code(s): E10.10 - Type 1 diabetes mellitus with ketoacidosis without coma (2) Leucocytosis Current Visit: Yes Status: Acute Assessment and plan: Improved. Likely reactive. No source of infection. Recheck CBC in AM. Qualifiers: Leukocytosis type: unspecified Qualified Code(s): D72.829 - Elevated white blood cell count, unspecified (3) Uncontrolled diabetes mellitus Current Visit: Yes Status: Acute Assessment and plan: Management as per above. Qualifiers: Diabetes mellitus type: type 1 Diabetes mellitus complication status: without complication Qualified Code(s): E10.65 - Type 1 diabetes mellitus with hyperglycemia (4) Metabolic acidosis due to diabetes mellitus Current Visit: Yes Status: Acute Assessment and plan: Improved. Now on diabetic diet. Encourage PO hydration. - Time Spent With Patient Total time spent is greater than 50% in coordination of care (as documented) at patient's floor/unit and/or counseling patient: less than 15 minutes - Subjective Interval history: Patient had no acute events overnight. She states that she feels much better. No more nausea, vomiting, or abdominal pain. Nursing staff transitioned her to SQ insulin and resumed home long acting insulin. She denies chest pain, SOB, fever, or chills. She has no complaints at this time. - Constitutional Vitals: Temp Pulse Resp BP Pulse Ox 98.6 F 116 20 90/54 98 10/28/17 11:00 10/28/17 15:27 10/28/17 11:00 10/28/17 11:00 10/28/17 11:00 General appearance: Present: cooperative, A&O X 3, pleasant, no acute distress, answers questions appropriately - Respiratory Respiratory exam: Present: CTAB. Absent: accessory muscle use, rales, rhonchi, wheezes Additional comments: Normal WOB - Cardiovascular Cardiovascular exam: Present: RRR, +S1, +S2. Absent: diastolic murmur, gallop, rubs, systolic murmur Additional comments: No BLE edema - GI/Abdominal GI/Abdominal exam: Present: normal bowel sounds, soft. Absent: distended, hepatomegaly, mass, splenomegaly, tenderness - Psychiatric Psychiatric exam: Present: normal affect, normal mood. Absent: agitated, anxious, depressed - Skin Skin exam: Present: dry, intact, warm. Absent: cyanosis, rash Internal Medicine: Result - Labs CBC & Chem 7: 10/28/17 04:00 10/28/17 08:04 Labs: Short CBC 10/28/17 Range/Units 04:00 WBC 16.5 H (4.3-11.1) K/mcL Hgb 10.8 L D (11.5-15.4) g/dL Hct 32.5 L (35.3-44.9) % Plt Count 485 H (140-400) K/mcL Neutrophils # 11.1 H (1.6-8.9) K/mcL BMP 10/27/17 10/27/17 10/28/17 17:41 21:14 01:34 Sodium 141 D 140 138 Potassium 4.7 4.0 3.3 L Chloride 114 H 110 H 111 H Carbon Dioxide 3 L* 10 L* 13 L BUN 17 15 11 Creatinine 0.86 0.68 0.72 Glucose 179 H 104 123 H Calcium 8.3 L 7.9 L 7.9 L 10/28/17 10/28/17 04:30 08:04 Sodium 134 L 136 Potassium 3.6 3.6 Chloride 110 H 112 H Carbon Dioxide 13 L 17 L BUN 11 9 Creatinine 0.63 0.57 L Glucose 187 H 110 H Calcium 7.5 L 7.3 L Liver Function 10/28/17 Range/Units 04:30 Total Bilirubin 0.3 (0.3-1.0) mg/dL AST 14 (13-39) Units/L ALT 21 (7-52) Units/L Alkaline Phosphatase 109 H (34-104) Units/L Albumin 3.1 L (3.5-5.7) g/dL - ABG Interpretation ABG results: ABG ABG pH 7.35 pH Units (7.32-7.45) 10/27/17 21:48 ABG pCO2 21 mmHg (35-45) L 10/27/17 21:48 ABG pO2 114 mmHg (85-104) H 10/27/17 21:48 ABG O2 Saturation 98 % (95-98) 10/27/17 21:48 Consult Discharge Plan - Plan Referrals: Leana Peck CNP [Primary Care Provider] -
[2017-10-28] MEDS ORDERED: Insulin LISPRO 300 UNITS/3 ML VIAL SQ SCH (21:00)
[2017-10-29 05:11] LABS: ABG Base Excess -1 mEq/L (-2 to 3); ABG HCO3 22 mEq/L (21-27); ABG Oxygen Saturation 98 % (95-98); ABG PCO2 34 mmHg (35-45); ABG PH 7.43 pH Units (7.32-7.45); ABG PO2 100 mmHg (85-104); ABG TCO2 23 mEq/L (20-26)
[2017-10-29] MEDS: *HR* Enoxaparin 40 MG/0.4 ML SYRINGE SQ SCH (06:00)
[2017-10-29 07:58] LABS: Alanine Aminotransferase 24 Units/L (7-52); Albumin 3.5 g/dL (3.5-5.7); Albumin/Globulin Ratio 1.3 (1.1-2.2); Alkaline Phosphatase 126 Units/L (34-104); Aspartate Amino Transferase 19 Units/L (13-39); BUN/Creatinine Ratio 15 (6-26); Bilirubin,Total 0.2 mg/dL (0.3-1.0); Blood Urea Nitrogen 9 mg/dL (6-20); Calcium 8.4 mg/dL (8.6-10.3); Carbon Dioxide 20 mEq/L (23-29); Chloride 106 mEq/L (98-107); Globulin 2.7 g/dL (2.4-3.5); Glucose 170 mg/dL (70-105); Osmolality,Calculated 287 (280-300); Sodium 137 mEq/L (136-145); Total Protein 6.2 g/dL (6.4-8.9); eGFR For African Americans > 60 (> 60); eGFR For Non-African Americans > 60 (> 60)
[2017-10-29] MEDS: Insulin LISPRO 300 UNITS/3 ML VIAL SQ SCH ×2 (08:02→11:19)
[2017-10-29 08:03] LABS: Basophils # 0.1 K/mcL (0.0-0.2); Basophils % 0.8 %; Eosinophils # 0.1 K/mcL (0.0-0.6); Eosinophils % 0.7 %; Hematocrit 37.5 % (35.3-44.9); Hemoglobin 12.3 g/dL (11.5-15.4); Lymphocytes # 2.2 K/mcL (0.6-4.6); Lymphocytes % 28.6 %; Mean Corpuscular HGB Conc 32.8 g/dL (31.6-35.5); Mean Corpuscular Hemoglobin 30.2 pg (28.0-33.3); Mean Corpuscular Volume 92.1 fL (83.0-100.0); Mean Platelet Volume 8.7 fL (9.4-12.4); Monocytes # 0.5 K/mcL (0.0-1.3); Monocytes % 6.6 %; Neutrophils # 4.8 K/mcL (1.6-8.9); Platelet Count 463 K/mcL (140-400); Red Blood Count 4.07 M/mcL (3.82-4.97); Red Cell Distribution Width 13.7 % (11.5-14.5); Segmented Neutrophils % 62.3 %
[2017-10-29 11:23] VITALS: BP 128/92
--- NOTE | 2017-10-29 12:01 | Discharge Summary ---
- NOTES TO OUTPATIENT PROVIDER Notes to Outpatient Provider: Follow up with PCP in 2-3 days after discharge. Recheck BMP (DKA/hyperglycemia/metabolic acidosis) and CBC (leukocytosis) at that time. Refer to endocrinology for Type I DM. Orders not resulted at time of discharge: Pending orders 10/28/17 01:34 Culture,Blood [BC] Stat Date of Encounter: 10/29/17 Time of Encounter: 11:59 - Discharge Diagnosis (1) DKA (diabetic ketoacidoses) Priority: Primary Status: Resolved Qualifiers: Diabetes mellitus type: type 1 Diabetes mellitus complication detail: without coma Qualified Code(s): E10.10 - Type 1 diabetes mellitus with ketoacidosis without coma (2) Leucocytosis Priority: Secondary Status: Resolved Qualifiers: Leukocytosis type: unspecified Qualified Code(s): D72.829 - Elevated white blood cell count, unspecified (3) Uncontrolled diabetes mellitus Priority: Secondary Status: Chronic Qualifiers: Diabetes mellitus type: type 1 Diabetes mellitus complication status: without complication Qualified Code(s): E10.65 - Type 1 diabetes mellitus with hyperglycemia (4) Metabolic acidosis due to diabetes mellitus Priority: Secondary Status: Resolved Hospital course: Ms. Dc is a 22 year old female admitted for DKA. She was admitted to step down unit with telemetry. She was started on insulin drip with appropriate fluids and electrolyte repletion. Abdominal pain, nausea, and vomiting resolved the next day. As blood glucose improved, she was transitioned to SQ insulin at home dose and with SSI. Blood glucose on BMP this AM is 170. She wants to go home. She has been provided with endocrinology phone number. She was previously referred by PCP. Patient will follow up with PCP in 2-3 days after discharge. Repeat BMP (DKA/hyperglycemia/ metabolic acidosis) and CBC (leukocytosis) can be checked at that time. Patient has met maximum benefit of this hospitalization and will be discharged home in stable condition. Discharge discussed with: patient, nurse - Time Spent with Patient Total time spent providing and/or coordinating discharge services: Greater than 30 minutes - Discharge Medications Home Medications: Insulin ASPART [Novolog Flexpen] 0 unit SQ TID 11/26/15 [History] Insulin Glargine,Hum.rec.anlog [Basaglar Kwikpen U-100] 50 unit SQ QPM 10/27/17 [History] Allergies/Adverse Reactions: 3 Allergy/AdvReac Type Severity Reaction Status Date / Time trazodone Allergy See Verified 11/26/15 09:51 Comments Date of admission: 10/27/17 17:09 Primary care physician: Leana Peck CNP Discharging clinician: Alberto Fernando Anticipated date of discharge: 10/29/17 - Constitutional Vitals: Temp Pulse Resp BP Pulse Ox 98.9 F 89 12 128/92 99 10/29/17 11:21 10/29/17 11:23 10/29/17 11:21 10/29/17 11:21 10/29/17 11:21 General appearance: Present: cooperative, A&O X 3, pleasant, no acute distress, answers questions appropriately - Respiratory Respiratory exam: Present: CTAB. Absent: accessory muscle use, rales, rhonchi, wheezes Additional comments: Normal WOB - Cardiovascular Cardiovascular exam: Present: RRR, +S1, +S2. Absent: diastolic murmur, gallop, rubs, systolic murmur Additional comments: No BLE edema - GI/Abdominal GI/Abdominal exam: Present: normal bowel sounds, soft. Absent: distended, hepatomegaly, mass, splenomegaly, tenderness - Psychiatric Psychiatric exam: Present: normal affect, normal mood. Absent: agitated, anxious, depressed - Skin Skin exam: Present: dry, intact, warm. Absent: cyanosis, rash - Patient Status Disposition: Home, Self-Care Condition: Good Functional capacity at discharge: independent ambulation Overall status at discharge: patient is progressing back to baseline - Discharge Instructions Follow Up With: Leana Peck CNP [Primary Care Provider] - Additional Instructions: Follow up with PCP in 2-3 days after discharge. Recheck BMP (DKA/hyperglycemia/ metabolic acidosis) and CBC (leukocytosis) at that time. Refer to endocrinology for Type I DM. - Diet and Activity Activity: resume usual activities as tolerated Diet: diabetic diet
[2017-10-29] MEDS ORDERED: Insulin DETEMIR 100 UNIT/ML X5UNITS SQ SCH (21:00)
== END 2017-10-29 14:07 | disposition home or self-care (01) | DRG 420 ==
LOC: 2NNU 12:53 → EMEROO 12:53 → 2NNU 18:19
PROVIDERS: ADMIT Family Medicine; ATTEND Family Medicine

== ENCOUNTER 2017-12-04 05:24 | Inpatient (IN) ==
--- NOTE | 2017-12-04 05:43 | Emergency Department Note ---
Disposition Clinical Impression: DKA (diabetic ketoacidoses) Qualifiers: Diabetes mellitus type: type 1 Diabetes mellitus complication detail: without coma Qualified Code(s): E10.10 - Type 1 diabetes mellitus with ketoacidosis without coma Disposition: Still a Patient Condition: Good Referrals: Leana Peck CNP [Primary Care Provider] - Forms: ED Satisfaction Letter Time of Disposition: 06:53 Nausea/Vomiting/Diarrhea HPI - General Chief complaint: ED Nausea/Vomiting/Diarrhea Stated complaint: possible DKA Time Seen by Provider: 12/04/17 05:35 Source: patient, family Mode of arrival: ambulatory Limitations: no limitations Nursing Notes Reviewed: Yes Vital Signs Reviewed: Yes - History of Present Illness HPI Narrative: Patient is a 22-year-old female with past medical history of type 1 diabetes. She has had multiple episodes of DKA in the past. She presents today due to nausea, vomiting, diffuse abdominal discomfort, concern for DKA. The patient has tachypnea and is not able to answer all questions at this time. Father is present and is answering most questions. He states that the patient uses long- acting Lantus at night and then approximately 50 units total of fast acting insulin throughout the day. He is unsure of the nighttime Lantus dosing. The patient has had nausea and vomiting over the past 2-3 days. She denies any missed doses of insulin. Denies any other fevers, cough, chest pain, dysuria. She does admit to generalized abdominal discomfort and episodes of nausea and vomiting. Denies any other medical history. No insulin pump use. - Related Data Home Medications Medication Instructions Recorded Confirmed Insulin ASPART [Novolog Flexpen] 0 unit SQ TID 11/26/15 10/27/17 Insulin Glargine,Hum.rec.anlog 50 unit SQ QPM 10/27/17 10/27/17 [Basaglar Kwikpen U-100] Allergies Allergy/AdvReac Type Severity Reaction Status Date / Time trazodone Allergy See Verified 11/26/15 09:51 Comments All systems ED: reviewed and negative except as stated. Constitutional: Denies: fever Cardiovascular: Denies: chest pain Respiratory: Reports: dyspnea. Denies: cough Gastrointestinal: Reports: abdominal pain, nausea, vomiting. Denies: diarrhea, constipation, hematemesis Genitourinary: Denies: urgency, dysuria Neurological: Denies: headache, weakness, numbness, paresthesias Endocrine: Reports: fatigue Past Medical History - Past Medical History Attestation: Yes The following information was validated with the patient. Source: patient Medical history: Reports: diabetes, GERD Psychiatric history: Reports: anxiety, ADHD, depression - Social History Smoking Status: Never smoker Alcohol use: Reports: none Drug use: Reports: none Physical Exam - General Limitations: no limitations General appearance: anxious, other (Listless) - Head Head exam: atraumatic, normocephalic, normal inspection - Eye Eye exam: Present: normal appearance, PERRL, EOMI - ENT ENT exam: normal oropharynx, mucous membranes moist, mucous membranes dry - Neck Neck exam: Present: normal inspection, full ROM, trachea midline - Chest Chest inspection: Present: normal inspection, symmetric chest wall rise - Respiratory Respiratory exam: Present: other (tachypnea, Kussmaul breathing) - Cardiovascular Cardiovascular exam: Present: tachycardia, normal heart sounds - Abdominal Exam Abdominal exam: Present: soft, tenderness (generalized tenderness). Absent: distention, rebound, rigidity - Extremities Exam Extremities exam: Present: normal inspection, full ROM. Absent: tenderness, pedal edema - Neurological Exam Neurological exam: Present: alert, oriented X3 - Psychiatric Psychiatric exam: Present: normal affect, normal mood - Skin Skin exam: Present: warm, dry, intact, normal color Course Course Narrative: Patient is tachycardic, tachypneic, Kussmaul breathing, dry mucous membranes. Concern for DKA at this time. DKA labs ordered along with chest x-ray and urinalysis. 3 L normal saline bolus ordered. Will check potassium. If potassium is greater than 3.5, will start insulin drip. Patient will need ICU admission for further care. 06:23 ph 6.95, beta hydroxy 0.10. WBC elevated in the 20s, consistent with lab value on last admission for DKA at the beginning of October 2017 with similar presentation. Waiting on [facility] for potassium and UA. Spoke with Dr. Win, no current ICU beds. He recommended giving more fluids at this time. If patient improves, she can be placed to step down unit. If remains tachypnic and tachycardic, will need admission to ICU. Will sign out to Dr. Elkins for further care and dispo. Vital Signs Temperature 97.8 F 12/04/17 05:25 Pulse Rate 137 12/04/17 05:25 Respiratory Rate 26 12/04/17 05:25 Blood Pressure 123/80 12/04/17 05:25 O2 Sat by Pulse Oximetry 99 12/04/17 05:25 Temperature 97.8 F 12/04/17 05:37 Pulse Rate 126 12/04/17 06:42 Respiratory Rate 26 12/04/17 05:37 Blood Pressure 137/85 12/04/17 06:42 O2 Sat by Pulse Oximetry 100 12/04/17 06:42 Oxygen Delivery Oxygen Delivery Nasal Cannula Nausea/Vomiting/Diarrhea - MDM Narrative Medical decision making narrative: Patient is tachycardic, tachypneic, Kussmaul breathing, dry mucous membranes. Concern for DKA at this time. DKA labs ordered along with chest x-ray and urinalysis. 3 L normal saline bolus ordered. Will check potassium. If potassium is greater than 3.5, will start insulin drip. Patient will need ICU admission for further care. 06:23 ph 6.95, beta hydroxy 0.10. WBC elevated in the 20s, consistent with lab value on last admission for DKA at the beginning of October 2017 with similar presentation. Waiting on BMP for potassium and UA. Spoke with Dr. Win, no current ICU beds. He recommended giving more fluids at this time. If patient improves, she can be placed to step down unit. If remains tachypnic and tachycardic, will need admission to ICU. Will sign out to Dr. Elkins for further care and dispo. - Medical Records Medical records reviewed: Yes I reviewed the patient's medical records. - Lab Data Lab results reviewed: Yes I reviewed the patient's lab results. Result diagrams: 12/04/17 06:00 12/04/17 06:00 Lab Results 12/04/17 12/04/17 12/04/17 Range/Units 06:00 06:00 06:00 WBC 22.9 H (4.3-11.1) K/mcL RBC 5.22 H (3.82-4.97) M/mcL Hgb 15.9 H (11.5-15.4) g/dL Hct 50.5 H (35.3-44.9) % MCV 96.7 (83.0-100.0) fL MCH 30.5 (28.0-33.3) pg MCHC 31.5 L (31.6-35.5) g/dL RDW 12.9 (11.5-14.5) % Plt Count 790 H (140-400) K/mcL MPV 8.6 L (9.4-12.4) fL Immature Gran % 2.0 (0-4) % Seg Neutrophils % 72.2 % Lymphocytes % 22.2 % Monocytes % 2.8 % Eosinophils % 0.1 % Basophils % 0.7 % Neutrophils # 16.5 H (1.6-8.9) K/mcL Lymphocytes # 5.1 H (0.6-4.6) K/mcL Monocytes # 0.6 (0.0-1.3) K/mcL Eosinophils # 0.0 (0.0-0.6) K/mcL Basophils # 0.2 (0.0-0.2) K/mcL VBG pH (7.32-7.42) pH Units VBG pCO2 (41-51) mmHg VBG pO2 (25-50) mmHg VBG HCO3 (21-27) mEq/L Sodium 140 (136-145) mEq/L Potassium 3.7 (3.5-5.1) mEq/L Chloride 96 L (98-107) mEq/L Carbon Dioxide 40 H* (23-29) mEq/L BUN 38 H (6-20) mg/dL Creatinine 0.91 (0.60-1.20) mg/dL Est GFR ( Amer) > 60 (> 60) Est GFR (Non-Af Amer) > 60 (> 60) BUN/Creatinine Ratio 42 H (6-26) Glucose 123 H (70-105) mg/dL Calculated Osmolality 300 (280-300) Calcium 9.2 (8.6-10.3) mg/dL Total Bilirubin 0.3 (0.3-1.0) mg/dL AST 10 L (13-39) Units/L ALT 13 (7-52) Units/L Alkaline Phosphatase 64 (34-104) Units/L Serum Total Protein 5.6 L (6.4-8.9) g/dL Albumin 3.0 L (3.5-5.7) g/dL Globulin 2.6 (2.4-3.5) g/dL Albumin/Globulin Ratio 1.2 (1.1-2.2) Beta-Hydroxybutyric Acd 0.10 (0.02-0.27) mmol/L Person Notif of Crit 12/04/17 Range/Units 06:11 WBC (4.3-11.1) K/mcL RBC (3.82-4.97) M/mcL Hgb (11.5-15.4) g/dL Hct (35.3-44.9) % MCV (83.0-100.0) fL MCH (28.0-33.3) pg MCHC (31.6-35.5) g/dL RDW (11.5-14.5) % Plt Count (140-400) K/mcL MPV (9.4-12.4) fL Immature Gran % (0-4) % Seg Neutrophils % % Lymphocytes % % Monocytes % % Eosinophils % % Basophils % % Neutrophils # (1.6-8.9) K/mcL Lymphocytes # (0.6-4.6) K/mcL Monocytes # (0.0-1.3) K/mcL Eosinophils # (0.0-0.6) K/mcL Basophils # (0.0-0.2) K/mcL VBG pH 6.95 L* (7.32-7.42) pH Units VBG pCO2 19 L (41-51) mmHg VBG pO2 71 H (25-50) mmHg VBG HCO3 4 L (21-27) mEq/L Sodium (136-145) mEq/L Potassium (3.5-5.1) mEq/L Chloride (98-107) mEq/L Carbon Dioxide (23-29) mEq/L BUN (6-20) mg/dL Creatinine (0.60-1.20) mg/dL Est GFR ( Amer) (> 60) Est GFR (Non-Af Amer) (> 60) BUN/Creatinine Ratio (6-26) Glucose (70-105) mg/dL Calculated Osmolality (280-300) Calcium (8.6-10.3) mg/dL Total Bilirubin (0.3-1.0) mg/dL AST (13-39) Units/L ALT (7-52) Units/L Alkaline Phosphatase (34-104) Units/L Serum Total Protein (6.4-8.9) g/dL Albumin (3.5-5.7) g/dL Globulin (2.4-3.5) g/dL Albumin/Globulin Ratio (1.1-2.2) Beta-Hydroxybutyric Acd (0.02-0.27) mmol/L Person Notif of Gonzalo CHAVEZ - Radiology Data Radiology results reviewed: Yes I reviewed the patient's radiology results. - EKG Data EKG attestation: Yes I reviewed and interpreted this EKG. EKG results narrative: 12/04/2017 05:45. Sinus tachycardia. Rate 125. TN 164. QRS 80. QTC 404. Normal axis. No acute ST elevation or depression. S.B.Sammi - Phuong.Marcel Situation: Demographics, MOA Background: Presenting Complaint, Relevant PMH, Meds, & Allergies Assessment: Vital Signs, Course and respsone to treatment, Exam Concerns, Patient/Family Expectation, Pertinant Lab Results, Outstanding Labs Recommendation: Barrier(s) to disposition, Recommendation based on pending studies, treatments, or consults S.B.AHector Report Given to: Dr. Severo Dubon Repor Time: 06:53
[2017-12-04] MEDS: 0.9 % Sodium Chloride 1,000 ML IVC SCH ×15 (05:49→19:33)
--- NOTE | 2017-12-04 05:52 | Emergency Department Note ---
Disposition Clinical Impression: DKA (diabetic ketoacidoses) Qualifiers: Diabetes mellitus type: type 1 Diabetes mellitus complication detail: without coma Qualified Code(s): E10.10 - Type 1 diabetes mellitus with ketoacidosis without coma Disposition: Still a Patient Referrals: Leana Peck CNP [Primary Care Provider] - Forms: ED Satisfaction Letter General Adult HPI - General Chief complaint: ED Nausea/Vomiting/Diarrhea Stated complaint: possible DKA Time Seen by Provider: 12/04/17 05:35 Source: patient, family Mode of arrival: ambulatory Limitations: no limitations - History of Present Illness Pain Scale: 5 - Related Data Home Medications Medication Instructions Recorded Confirmed Insulin ASPART [Novolog Flexpen] 0 unit SQ TID 11/26/15 10/27/17 Insulin Glargine,Hum.rec.anlog 50 unit SQ QPM 10/27/17 10/27/17 [Basaglar Kwikpen U-100] Allergies Allergy/AdvReac Type Severity Reaction Status Date / Time trazodone Allergy See Verified 11/26/15 09:51 Comments Constitutional: Denies: fever Cardiovascular: Denies: chest pain Respiratory: Reports: dyspnea. Denies: cough Gastrointestinal: Reports: abdominal pain, nausea, vomiting. Denies: diarrhea, constipation, hematemesis Genitourinary: Denies: urgency, dysuria Neurological: Denies: headache, weakness, numbness, paresthesias Endocrine: Reports: fatigue Past Medical History - Past Medical History Medical history: Reports: diabetes, GERD Psychiatric history: Reports: anxiety, ADHD, depression - Social History Smoking Status: Never smoker Alcohol use: Reports: none Drug use: Reports: none Physical Exam - General Limitations: no limitations General appearance: anxious, other (Listless) Course - Reevaluation(s) Reevaluation #1: Attestation note I examined this patient and my medical decision-making was reviewed with the emergency medicine resident. I agree with the documented findings, disposition and treatment plan as described except to the extent set forth below. Patient seen with emergency medicine resident Dr. Andrew Qureshi, Please see a copy of his note for details of the H&P, ED evaluation, management and disposition. I have independently evaluated the patient and confirmed appropriate portions of the history and physical exam. Briefly: 30-year-old insulin-dependent diabetic presents with father for nausea vomiting shortness of breath and fatigue. Upon walking to the room there was a mistakable odor of ketones. Patient's breathing between 26 and 35 times per minute tachycardic in the 130s trial mucosa. Patient will get IV fluid boluses at least 2-3 L screening labs and pending upon the electrolytes at that point will start insulin drip. Possible the patient may need transfer since there is no available unit beds at [place] at this time. Providing 45 minutes critical care service this patient. Diabetic ketoacidosis acute disease being entertained. Disposition pending Time: 05:50 Vital Signs Temperature 97.8 F 12/04/17 05:25 Pulse Rate 137 12/04/17 05:25 Respiratory Rate 26 12/04/17 05:25 Blood Pressure 123/80 12/04/17 05:25 O2 Sat by Pulse Oximetry 99 12/04/17 05:25 Temperature 97.8 F 12/04/17 05:37 Pulse Rate 137 12/04/17 05:37 Respiratory Rate 26 12/04/17 05:37 Blood Pressure 123/80 12/04/17 05:37 O2 Sat by Pulse Oximetry 99 12/04/17 05:37 Oxygen Delivery Oxygen Delivery Room Air
[2017-12-04 06:16] LABS: Basophils # 0.2 K/mcL (0.0-0.2); Basophils % 0.7 %; Eosinophils % 0.1 %; Hematocrit 50.5 % (35.3-44.9); Hemoglobin 15.9 g/dL (11.5-15.4); Lymphocytes # 5.1 K/mcL (0.6-4.6); Lymphocytes % 22.2 %; Mean Corpuscular HGB Conc 31.5 g/dL (31.6-35.5); Mean Corpuscular Hemoglobin 30.5 pg (28.0-33.3); Mean Corpuscular Volume 96.7 fL (83.0-100.0); Mean Platelet Volume 8.6 fL (9.4-12.4); Monocytes # 0.6 K/mcL (0.0-1.3); Monocytes % 2.8 %; Neutrophils # 16.5 K/mcL (1.6-8.9); Platelet Count 790 K/mcL (140-400); Red Blood Count 5.22 M/mcL (3.82-4.97); Red Cell Distribution Width 12.9 % (11.5-14.5); Segmented Neutrophils % 72.2 %
[2017-12-04 06:20] LABS: VBG HCO3 4 mEq/L (21-27); VBG PCO2 19 mmHg (41-51); VBG PH 6.95 pH Units (7.32-7.42); VBG PO2 71 mmHg (25-50)
[2017-12-04] MEDS ORDERED: Ondansetron 4 MG/2 ML VIAL IVP ONE (06:35)
[2017-12-04 06:46] LABS: Alanine Aminotransferase 13 Units/L (7-52); Albumin/Globulin Ratio 1.2 (1.1-2.2); Alkaline Phosphatase 64 Units/L (34-104); Aspartate Amino Transferase 10 Units/L (13-39); BUN/Creatinine Ratio 42 (6-26); Bilirubin,Total 0.3 mg/dL (0.3-1.0); Blood Urea Nitrogen 38 mg/dL (6-20); Calcium 9.2 mg/dL (8.6-10.3); Carbon Dioxide 40 mEq/L (23-29); Chloride 96 mEq/L (98-107); Globulin 2.6 g/dL (2.4-3.5); Glucose 123 mg/dL (70-105); Osmolality,Calculated 300 (280-300); Potassium 3.7 mEq/L (3.5-5.1); Sodium 140 mEq/L (136-145); Total Protein 5.6 g/dL (6.4-8.9); eGFR For African Americans > 60 (> 60); eGFR For Non-African Americans > 60 (> 60)
[2017-12-04 07:13] LABS: Lipase < 3 Units/L (11-82)
[2017-12-04] MEDS ORDERED: *HR* Dextrose 50 % in Water (Syg) 50 ML SYRINGE IVP PRN ×3 (07:14→13:19)
[2017-12-04] MEDS ORDERED: 0.9 % Sodium Chloride 1,000 ML IVC ONE ×3 (07:15→10:51)
[2017-12-04] MEDS ORDERED: Insulin Human Regular 100 UNIT in 0.9 % Sodium Chloride 100 ML IVC SCH (07:15)
[2017-12-04] MEDS ORDERED: Isovue-370 500 ML INFUS..BTL IV ONE (07:24)
--- NOTE | 2017-12-04 07:29 | Emergency Department Note ---
Disposition Clinical Impression: DKA (diabetic ketoacidoses) Qualifiers: Diabetes mellitus type: type 1 Diabetes mellitus complication detail: without coma Qualified Code(s): E10.10 - Type 1 diabetes mellitus with ketoacidosis without coma Disposition: Admitted As Inpatient Condition: Critical Referrals: Leana Peck [employer] INST[employer]ER [Advanced Practice Nurse] - Forms: ED Satisfaction Letter General Adult HPI - General Chief complaint: ED Nausea/Vomiting/Diarrhea Stated complaint: possible DKA Time Seen by Provider: 12/04/17 05:35 Source: patient, family Mode of arrival: ambulatory Limitations: no limitations - History of Present Illness Pain Scale: 5 - Related Data Home Medications Medication Instructions Recorded Confirmed Insulin ASPART [Novolog Flexpen] 0 unit SQ TID 11/26/15 12/04/17 Insulin Glargine,Hum.rec.anlog 50 unit SQ QPM 10/27/17 12/04/17 [Basaglar Kwikpen U-100] Divalproex Sodium [Depakote] 250 mg PO BID 12/04/17 12/04/17 Allergies Allergy/AdvReac Type Severity Reaction Status Date / Time trazodone Allergy See Verified 11/26/15 09:51 Comments Constitutional: Denies: fever Cardiovascular: Denies: chest pain Respiratory: Reports: dyspnea. Denies: cough Gastrointestinal: Reports: abdominal pain, nausea, vomiting. Denies: diarrhea, constipation, hematemesis Genitourinary: Denies: urgency, dysuria Neurological: Denies: headache, weakness, numbness, paresthesias Endocrine: Reports: fatigue Past Medical History - Past Medical History Medical history: Reports: diabetes, GERD Psychiatric history: Reports: anxiety, ADHD, depression - Social History Smoking Status: Never smoker Alcohol use: Reports: none Drug use: Reports: none Physical Exam - General Limitations: no limitations General appearance: anxious, other (Listless) Course - Reevaluation(s) Reevaluation #1: Patient taken over at sign out from Dr. Rossi. Patient with DKA. Type I diabetic with 3 days of abdominal pain and vomiting. Initial blood work shows a pH of 6.95. Reported glucose of 500. Discussed with supervisor char house and they have requested further fluids to see if she would be appropriate for stepdown unit. On my evaluation the patient is still to. Patient is not ready for stepdown unit. On reevaluation of her blood work her chemistry shows a glucose of 120s there are no serum ketones. Patient complaining of abdominal pain with tenderness to palpation of the lower quadrants. Patient still awaiting urinalysis. CT scan of the abdomen and pelvis will be performed. Repeat blood work has been sent. Patient is currently on her period. When she used bedside commode, tampon fell out. Patient states that she does not believe it is been in there for more than a day. Denies dysuria. No previous abdominal surgeries. Repeat blood work with worsening acidosis. Her analysis shows significant elevated ketones. Repeat glucose is now elevated. Insulin drip started. Bicarbonate bolus and drip started. Discussed with ICU. Discussed with Dr. Lemus. The patient should receive insulin bolus. Bicarbonate drip should be stopped and the pH reaches 7. He is unsure about ICU status. Will work on getting her admitted here. Patient accepted for admission. Vital Signs Temperature 97.8 F 12/04/17 05:25 Pulse Rate 137 12/04/17 05:25 Respiratory Rate 26 12/04/17 05:25 Blood Pressure 123/80 12/04/17 05:25 O2 Sat by Pulse Oximetry 99 12/04/17 05:25 Temperature 97.8 F 12/04/17 05:37 Pulse Rate 114 12/04/17 09:33 Respiratory Rate 30 12/04/17 09:33 Blood Pressure 133/84 12/04/17 09:33 O2 Sat by Pulse Oximetry 99 12/04/17 09:33 Oxygen Delivery Oxygen Delivery Nasal Cannula Procedures - Central Line Placement Right IJ Central Line Inserted*: Yes Central Line Insertion: emergent Consent Obtained: verbal consent Procedural Pause: verify patient name and date of , timeout performed per policy, sherita and assess the site, assemble equipment and verify supplies, perform hand hygiene Patient Placed on Monitor/Pulse Ox: Yes During the Procedure: clinician is wearing sterile gloves, cap, mask,& gown during insertion, sterile field and sterile technique are maintained, patient's face is covered with drape or mask and wearing a cap, everyone in room is wearing a mask Prep the Procedure Site: apply chloraprep to the skin using a back and forth scrubbing motion, apply chloraprep for 30 seconds (upper body), 1-2 min ( femoral sites), allow prep to dry, drape the patient with a full body drape Local Anesthetic: lidocaine 1% Amount of anesthesia used (mL): 3 Ultrasound Used for Placement: Yes Central Line Lumen Inserted: triple Post Procedure: sutured in place, good blood return, all ports aspirated, flushed, capped, sterile dressing applied, guide wire removed and visualized, dressing is dated Post Procedure X-Ray: tip of catheter in good position Patient Tolerated Procedure: well Complications: none Name of Clinician Inserting Central Line: Severo Additional Comments: Confirmed with ultrasound after wire placement Medical Decision Making - Lab Data Result diagrams: 12/04/17 06:00 12/04/17 08:14 Lab Results 12/04/17 12/04/17 12/04/17 Range/Units 06:00 06:00 06:00 WBC 22.9 H (4.3-11.1) K/mcL RBC 5.22 H (3.82-4.97) M/mcL Hgb 15.9 H (11.5-15.4) g/dL Hct 50.5 H (35.3-44.9) % MCV 96.7 (83.0-100.0) fL MCH 30.5 (28.0-33.3) pg MCHC 31.5 L (31.6-35.5) g/dL RDW 12.9 (11.5-14.5) % Plt Count 790 H (140-400) K/mcL MPV 8.6 L (9.4-12.4) fL Immature Gran % 2.0 (0-4) % Seg Neutrophils % 72.2 % Lymphocytes % 22.2 % Monocytes % 2.8 % Eosinophils % 0.1 % Basophils % 0.7 % Neutrophils # 16.5 H (1.6-8.9) K/mcL Lymphocytes # 5.1 H (0.6-4.6) K/mcL Monocytes # 0.6 (0.0-1.3) K/mcL Eosinophils # 0.0 (0.0-0.6) K/mcL Basophils # 0.2 (0.0-0.2) K/mcL VBG pH (7.32-7.42) pH Units VBG pCO2 (41-51) mmHg VBG pO2 (25-50) mmHg VBG HCO3 (21-27) mEq/L Sodium 140 (136-145) mEq/L Potassium 3.7 (3.5-5.1) mEq/L Chloride 96 L (98-107) mEq/L Carbon Dioxide 40 H* (23-29) mEq/L BUN 38 H (6-20) mg/dL Creatinine 0.91 (0.60-1.20) mg/dL Est GFR ( Amer) > 60 (> 60) Est GFR (Non-Af Amer) > 60 (> 60) BUN/Creatinine Ratio 42 H (6-26) Glucose 123 H (70-105) mg/dL Calculated Osmolality 300 (280-300) Lactic Acid (0.5-2.2) mmol/L Calcium 9.2 (8.6-10.3) mg/dL Total Bilirubin 0.3 (0.3-1.0) mg/dL AST 10 L (13-39) Units/L ALT 13 (7-52) Units/L Alkaline Phosphatase 64 (34-104) Units/L Serum Total Protein 5.6 L (6.4-8.9) g/dL Albumin 3.0 L (3.5-5.7) g/dL Globulin 2.6 (2.4-3.5) g/dL Albumin/Globulin Ratio 1.2 (1.1-2.2) Lipase < 3 L (11-82) Units/L Beta-Hydroxybutyric Acd 0.10 (0.02-0.27) mmol/L Urine Color (Yellow) Urine Clarity (Clear) Urine pH (5.0-8.0) pH Units Ur Specific [place] (1.010-1.025) Urine Protein (Neg-Trace) mg/dL Urine Glucose (UA) (Normal) mg/dL Urine Ketones (Negative) mg/dL Urine Blood (Negative) Urine Nitrite (Negative) Urine Bilirubin (Negative) Urine Urobilinogen (Normal) mg/dL Ur Leukocyte Esterase (Negative) Urine Microscopic RBC (0-3) per hpf Urine Microscopic WBC (0-3) per hpf Ur Squamous Epith Cells (None-Few) per lpf Urine Bacteria (None-Few) per hpf Hyaline Casts (None-Few) per lpf Ur Culture Indicated? (NO) Urine Test (Negative) Person Notif of Crit 12/04/17 12/04/17 12/04/17 Range/Units 06:11 07:33 07:33 WBC (4.3-11.1) K/mcL RBC (3.82-4.97) M/mcL Hgb (11.5-15.4) g/dL Hct (35.3-44.9) % MCV (83.0-100.0) fL MCH (28.0-33.3) pg MCHC (31.6-35.5) g/dL RDW (11.5-14.5) % Plt Count (140-400) K/mcL MPV (9.4-12.4) fL Immature Gran % (0-4) % Seg Neutrophils % % Lymphocytes % % Monocytes % % Eosinophils % % Basophils % % Neutrophils # (1.6-8.9) K/mcL Lymphocytes # (0.6-4.6) K/mcL Monocytes # (0.0-1.3) K/mcL Eosinophils # (0.0-0.6) K/mcL Basophils # (0.0-0.2) K/mcL VBG pH 6.95 L* (7.32-7.42) pH Units VBG pCO2 19 L (41-51) mmHg VBG pO2 71 H (25-50) mmHg VBG HCO3 4 L (21-27) mEq/L Sodium (136-145) mEq/L Potassium (3.5-5.1) mEq/L Chloride (98-107) mEq/L Carbon Dioxide (23-29) mEq/L BUN (6-20) mg/dL Creatinine (0.60-1.20) mg/dL Est GFR ( Amer) (> 60) Est GFR (Non-Af Amer) (> 60) BUN/Creatinine Ratio (6-26) Glucose (70-105) mg/dL Calculated Osmolality (280-300) Lactic Acid (0.5-2.2) mmol/L Calcium (8.6-10.3) mg/dL Total Bilirubin (0.3-1.0) mg/dL AST (13-39) Units/L ALT (7-52) Units/L Alkaline Phosphatase (34-104) Units/L Serum Total Protein (6.4-8.9) g/dL Albumin (3.5-5.7) g/dL Globulin (2.4-3.5) g/dL Albumin/Globulin Ratio (1.1-2.2) Lipase (11-82) Units/L Beta-Hydroxybutyric Acd (0.02-0.27) mmol/L Urine Color Yellow (Yellow) Urine Clarity Cloudy A (Clear) Urine pH 5.5 (5.0-8.0) pH Units Ur Specific [place] 1.027 H (1.010-1.025) Urine Protein 30 H (Neg-Trace) mg/dL Urine Glucose (UA) >=1000 H (Normal) mg/dL Urine Ketones >=160 H (Negative) mg/dL Urine Blood Large H (Negative) Urine Nitrite Negative (Negative) Urine Bilirubin Negative (Negative) Urine Urobilinogen Normal (Normal) mg/dL Ur Leukocyte Esterase Small H (Negative) Urine Microscopic RBC 50-100 H (0-3) per hpf Urine Microscopic WBC 15-30 H (0-3) per hpf Ur Squamous Epith Cells Many H (None-Few) per lpf Urine Bacteria Few (None-Few) per hpf Hyaline Casts Few (None-Few) per lpf Ur Culture Indicated? NO. A (NO) Urine Test Negative (Negative) Person Notif of Gonzalo RAH HUFFMANONE 12/04/17 12/04/17 12/04/17 Range/Units 08:14 08:14 08:35 WBC (4.3-11.1) K/mcL RBC (3.82-4.97) M/mcL Hgb (11.5-15.4) g/dL Hct (35.3-44.9) % MCV (83.0-100.0) fL MCH (28.0-33.3) pg MCHC (31.6-35.5) g/dL RDW (11.5-14.5) % Plt Count (140-400) K/mcL MPV (9.4-12.4) fL Immature Gran % (0-4) % Seg Neutrophils % % Lymphocytes % % Monocytes % % Eosinophils % % Basophils % % Neutrophils # (1.6-8.9) K/mcL Lymphocytes # (0.6-4.6) K/mcL Monocytes # (0.0-1.3) K/mcL Eosinophils # (0.0-0.6) K/mcL Basophils # (0.0-0.2) K/mcL VBG pH 6.77 L* D (7.32-7.42) pH Units VBG pCO2 17 L (41-51) mmHg VBG pO2 122 H (25-50) mmHg VBG HCO3 2 L (21-27) mEq/L Sodium 136 (136-145) mEq/L Potassium 5.0 D (3.5-5.1) mEq/L Chloride 109 H (98-107) mEq/L Carbon Dioxide 3 L* (23-29) mEq/L BUN 19 (6-20) mg/dL Creatinine 0.88 (0.60-1.20) mg/dL Est GFR ( Amer) > 60 (> 60) Est GFR (Non-Af Amer) > 60 (> 60) BUN/Creatinine Ratio 22 (6-26) Glucose 641 H* (70-105) mg/dL Calculated Osmolality 314 H (280-300) Lactic Acid 1.3 (0.5-2.2) mmol/L Calcium 7.1 L (8.6-10.3) mg/dL Total Bilirubin 0.2 L (0.3-1.0) mg/dL AST 50 H (13-39) Units/L ALT 31 (7-52) Units/L Alkaline Phosphatase 127 H (34-104) Units/L Serum Total Protein 6.8 (6.4-8.9) g/dL Albumin 3.8 (3.5-5.7) g/dL Globulin 3.0 (2.4-3.5) g/dL Albumin/Globulin Ratio 1.3 (1.1-2.2) Lipase (11-82) Units/L Beta-Hydroxybutyric Acd (0.02-0.27) mmol/L Urine Color (Yellow) Urine Clarity (Clear) Urine pH (5.0-8.0) pH Units Ur Specific [place] (1.010-1.025) Urine Protein (Neg-Trace) mg/dL Urine Glucose (UA) (Normal) mg/dL Urine Ketones (Negative) mg/dL Urine Blood (Negative) Urine Nitrite (Negative) Urine Bilirubin (Negative) Urine Urobilinogen (Normal) mg/dL Ur Leukocyte Esterase (Negative) Urine Microscopic RBC (0-3) per hpf Urine Microscopic WBC (0-3) per hpf Ur Squamous Epith Cells (None-Few) per lpf Urine Bacteria (None-Few) per hpf Hyaline Casts (None-Few) per lpf Ur Culture Indicated? (NO) Urine Test (Negative) Person Notif of Crit DR WEBER IN ER Critical Care Time Critical Care Time: Yes Total Critical Care Time: 55 Attestation: Due to a high probability of clinically significant, life threatening deterioration, the patient required my highest level of preparedness to intervene emergently and I personally spent this critical care time directly and personally managing the patient. This critical care time included obtaining a history; examining the patient; pulse oximetry; ordering and review of studies ; arranging urgent treatment with development of a management plan; evaluation of patient's response to treatment; frequent reassessment; and, discussions with other providers. This critical care time was performed to assess and manage the high probability of imminent, life-threatening deterioration that could result in multi-organ failure. It was exclusive of separately billable procedures and treating other patients and teaching time. Please see MDM section and the rest of the note for further information on patient assessment and treatment.
[2017-12-04] MEDS ORDERED: Piperacillin/Tazobactam 3.375 GM in 0.9 % Sodium Chloride Mini Bag 100 ML IVPB ONE (07:35)
[2017-12-04 07:44] LABS: Bilirubin,Urine Negative (Negative); Blood,Urine Large (Negative); Clarity,Urine Cloudy (Clear); Color,Urine Yellow (Yellow); Glucose,Urine (UA) >=1000 mg/dL (Normal); Ketones,Urine >=160 mg/dL (Negative); Leukocyte Esterase,Urine Small (Negative); Nitrite,Urine Negative (Negative); PH,Urine 5.5 pH Units (5.0-8.0); Protein,Urine 30 mg/dL (Neg-Trace); Specific Gravity,Urine 1.027 (1.010-1.025); Urobilinogen,Urine Normal (Normal)
[2017-12-04 07:45] LABS: Bacteria,Urine Few per hpf (None-Few); Hyaline Casts,Urine Few per lpf (None-Few); RBC,Urine 50-100 per hpf (0-3); Squamous Epithelial Cell,Urine Many per lpf (None-Few); WBC,Urine 15-30 per hpf (0-3)
[2017-12-04 08:48] LABS: VBG HCO3 2 mEq/L (21-27); VBG PCO2 17 mmHg (41-51); VBG PH 6.77 pH Units (7.32-7.42); VBG PO2 122 mmHg (25-50)
[2017-12-04 08:54] LABS: Alanine Aminotransferase 31 Units/L (7-52); Albumin 3.8 g/dL (3.5-5.7); Albumin/Globulin Ratio 1.3 (1.1-2.2); Alkaline Phosphatase 127 Units/L (34-104); Aspartate Amino Transferase 50 Units/L (13-39); BUN/Creatinine Ratio 22 (6-26); Bilirubin,Total 0.2 mg/dL (0.3-1.0); Blood Urea Nitrogen 19 mg/dL (6-20); Calcium 7.1 mg/dL (8.6-10.3); Carbon Dioxide 3 mEq/L (23-29); Chloride 109 mEq/L (98-107); Glucose 641 mg/dL (70-105); Osmolality,Calculated 314 (280-300); Sodium 136 mEq/L (136-145); Total Protein 6.8 g/dL (6.4-8.9); eGFR For African Americans > 60 (> 60); eGFR For Non-African Americans > 60 (> 60)
[2017-12-04] MEDS ORDERED: Insulin Regular, Human 100 UNIT/ML IV PRN ×2 (09:02→13:19)
[2017-12-04] MEDS: Insulin Human Regular 100 UNIT in 0.9 % Sodium Chloride 100 ML IVC SCH ×2 (09:54→14:23)
[2017-12-04] MEDS: Sod Bicarb 150mEq/D5W 150 MEQ/1,000 ML IV.SOLN IVC SCH ×2 (10:38→15:43)
[2017-12-04 11:04] LABS: VBG HCO3 3 mEq/L (21-27); VBG PCO2 17 mmHg (41-51); VBG PO2 158 mmHg (25-50)
[2017-12-04 11:24] LABS: Calcium 6.5 mg/dL (8.6-10.3); Glucose 541 mg/dL (70-105)
[2017-12-04 11:25] LABS: Blood Urea Nitrogen 19 mg/dL (6-20); Carbon Dioxide 3 mEq/L (23-29)
[2017-12-04 12:42] LABS: VBG HCO3 4 mEq/L (21-27); VBG PCO2 22 mmHg (41-51); VBG PH 6.89 pH Units (7.32-7.42); VBG PO2 116 mmHg (25-50)
[2017-12-04] MEDS ORDERED: D5% in 0.45% NACL 1,000 ML IVC PRN (13:19)
[2017-12-04] MEDS ORDERED: Naloxone 0.4 MG/ML INJ IVP PRN (13:19)
--- NOTE | 2017-12-04 13:19 | Pulmonology History & Physical ---
<Christine Win M - Last Filed: 12/04/17 15:21> Date of Encounter: 12/04/17 History of Present Illness HPI: Ms. Dc is a 22 year old female Medications and Allergies Insulin ASPART [Novolog Flexpen] 0 unit SQ TID 11/26/15 [History] Insulin Glargine,Hum.rec.anlog [Basaglar Kwikpen U-100] 50 unit SQ QPM 10/27/17 [History] Divalproex Sodium [Depakote] 250 mg PO BID 12/04/17 [History] 3 Allergy/AdvReac Type Severity Reaction Status Date / Time trazodone Allergy See Verified 11/26/15 09:51 Comments All Systems: The remainder of the systems were reviewed and are negative Physical Examination Vital Signs: Vital Signs, Last 4 Hours Temp Pulse Resp BP Pulse Ox 12/04/17 15:00 109 24 121/84 98 12/04/17 14:00 110 34 114/77 99 12/04/17 13:39 110 12/04/17 13:35 110 12/04/17 13:19 96.2 F L 110 30 100 12/04/17 12:59 26 117/106 Results - Laboratory Findings CBC and BMP: 12/04/17 06:00 12/04/17 12:30 Abnormal lab findings: Abnormal lab results WBC 22.9 K/mcL (4.3-11.1) H 12/04/17 06:00 RBC 5.22 M/mcL (3.82-4.97) H 12/04/17 06:00 Hgb 15.9 g/dL (11.5-15.4) H 12/04/17 06:00 Hct 50.5 % (35.3-44.9) H 12/04/17 06:00 MCHC 31.5 g/dL (31.6-35.5) L 12/04/17 06:00 Plt Count 790 K/mcL (140-400) H 12/04/17 06:00 MPV 8.6 fL (9.4-12.4) L 12/04/17 06:00 Neutrophils # 16.5 K/mcL (1.6-8.9) H 12/04/17 06:00 Lymphocytes # 5.1 K/mcL (0.6-4.6) H 12/04/17 06:00 VBG pH 6.89 pH Units (7.32-7.42) L* 12/04/17 12:37 VBG pCO2 22 mmHg (41-51) L 12/04/17 12:37 VBG pO2 116 mmHg (25-50) H 12/04/17 12:37 VBG HCO3 4 mEq/L (21-27) L 12/04/17 12:37 Potassium 3.4 mEq/L (3.5-5.1) L 12/04/17 12:30 Chloride 118 mEq/L (98-107) H 12/04/17 12:30 Carbon Dioxide 4 mEq/L (23-29) L* 12/04/17 12:30 Glucose 304 mg/dL (70-105) H 12/04/17 12:30 POC Glucose 171 mg/dL (70-99) H 12/04/17 15:00 Calculated Osmolality 304 (280-300) H 12/04/17 12:30 Calcium 5.3 mg/dL (8.6-10.3) L* 12/04/17 12:30 Total Bilirubin 0.2 mg/dL (0.3-1.0) L 12/04/17 08:14 AST 50 Units/L (13-39) H 12/04/17 08:14 Alkaline Phosphatase 127 Units/L (34-104) H 12/04/17 08:14 Lipase < 3 Units/L (11-82) L 12/04/17 06:00 Urine Clarity Cloudy (Clear) A 12/04/17 07:33 Ur Specific Proctor 1.027 (1.010-1.025) H 12/04/17 07:33 Urine Protein 30 mg/dL (Neg-Trace) H 12/04/17 07:33 Urine Glucose (UA) >=1000 mg/dL (Normal) H 12/04/17 07:33 Urine Ketones >=160 mg/dL (Negative) H 12/04/17 07:33 Urine Blood Large (Negative) H 12/04/17 07:33 Ur Leukocyte Esterase Small (Negative) H 12/04/17 07:33 Urine Microscopic RBC 50-100 per hpf (0-3) H 12/04/17 07:33 Urine Microscopic WBC 15-30 per hpf (0-3) H 12/04/17 07:33 Ur Squamous Epith Cells Many per lpf (None-Few) H 12/04/17 07:33 Ur Culture Indicated? NO. (NO) A 12/04/17 07:33 - Attending Attestation I examined this patient and my medical decision-making was reviewed with the Resident Physician. I agree with the documented findings, disposition and treatment plan as described except to the extent set forth below. Patient seen and examined. I was called by the emergency room physician to evaluate this patient and she was seen in the emergency room as well as in the ICU. Labs, radiology, chart personally reviewed. 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 Cardiovascular: Patient with evidence of hypovolemia and tachycardia GI: Nutrition per dietary and GI prophylaxis per routine Heme: DVT prophylaxis per routine ID: There is no obvious source of infection. Renal; urine out put and renal funtion reviewed. This patient has severe metabolic acidosis and patient received sodium bicarbonate and needs close monitoring. Once pH is around 7 sodium bicarbonate needs to be stopped due to the risk of hypokalemia. Patient will be managed according to the DKA protocol. I have advised ER physician to be more aggressive with fluid resuscitation since patient clinically is very dry. Endorcine: blood glucose is monitored. Patient will be on insulin drip and frequent labs. Lines: all lines checked and no evidence of infections Skin: skin care to prevent pressure ulcers per nursing routine care I have discussed with the family at the bedside. I am hoping patient will be compliant otherwise prognosis would be poor. I spent 40 min of Critical Care time with this patient. It involved decision making of high complexity to assess, manipulate, and support vital organ system failure and/or to prevent further life threatening deterioration of the patient' s condition. The time involved in the performance of separately reportable procedures was not counted toward critical care time. <Elvin Blanchard - Last Filed: 12/04/17 15:44> Date of Encounter: 12/04/17 Time of Encounter: 13:19 Assessment and Plan (1) DKA (diabetic ketoacidoses) Current visit: No Status: Resolved Patient presented bit with being a type I diabetic does use insulin unsure of how his insulin she took recently. Patient on insulin pump. Patient was shown to have a leukocytosis of 22.9 patient also found to have a tampon the patient is unsure along its been in there is very little thought towards this being toxic shock syndrome based on patient's presentation. Patient did have Kussmaul breathing on exam. Patient's original pH done via VBG was 6.77. Patient's original labs showed no hyperglycemia they did repeat him and patient' s glucose was above 300 with a bicarbonate of 3. Patient was in DKA patient was given approximately 3-4 L of IV fluid in the emergency department. Patient was also started on a bicarbonate drip after getting in an amp of bicarbonate due to patient's severe acidosis. Patient at this time did not have an abnormal potassium is BMP showed potassium level of 5.0 we do expect that he will down as patient is started on insulin bolus and changed to an insulin drip. Start DKA protocol with IV fluid, IV insulin changing to maintenance insulin. We will replace potassium as indicated via protocol We will continue bicarbonate drip until pH is above 7.0. Patient did get vancomycin and Zosyn in the emergency department for possible infectious causes. Blood and urine cultures are pending Qualifiers: Diabetes mellitus type: type 1 Diabetes mellitus complication detail: without coma Qualified Code(s): E10.10 - Type 1 diabetes mellitus with ketoacidosis without coma (2) Leucocytosis Current visit: No Status: Resolved Patient did have a leukocytosis of 22.9 this could be due to stress reaction from the DKA but also could be infectious/inflammatory causes which could cause patient to go into DKA. Patient was given vancomycin and Zosyn in the emergency department. Blood cultures and urine cultures are still pending. Qualifiers: Leukocytosis type: unspecified Qualified Code(s): D72.829 - Elevated white blood cell count, unspecified (3) Metabolic acidosis due to diabetes mellitus Current visit: No Status: Resolved Patient was metabolic acidosis most likely secondary to DKA. Did give bicarbonate amp and drip until pH of 7.0. Patient did have an open anion gap originally of 24 as patient's bicarbonate was 3. Patient has normal renal function. We will continue to give insulin until patient Karely gap closes. Continue DKA protocol History of Present Illness Chief complaint: Nausea/vomiting HPI: Ms. Dc is a 22 year old female with past medical history for type 1 diabetes and it is insulin-dependent. She had multiple episodes of DKA in the past. Patient presents today due to nausea vomiting and abdominal pain with concern for DKA. Patient had a hard time breathing and was not able to answer questions when I evaluated her. Her father was there and said patient does use a long-acting Lantus at night and then approximate 50 units total of fast acting insulin throughout the day using carbohydrate sliding scale. He is unsure how much Lantus she took last night. Patient has not felt well for the past 2-3 days. In the past patient has gone into DKA whenever she gets sick and sometimes she has noticed she does not do DKA well on her period. Patient does not use an insulin pump. In the emergency department patient did have clue small breathing as well as dry mucous membranes they gave patient 3 L of normal saline via boluses. Patient's pH came back at 6.95 beta hydroxybutyrate was 0.10 patient did have a leukocytosis in the 20s. Patient stated in the emergency department and did get further resuscitation including placing a central venous catheter. Past Med Surg Social Fam HX - Past Medical History Medical history: diabetes, GERD Additional medical history: Type 1 diabetic Psychiatric history: anxiety, ADHD, depression - Social History Smoking Status: Never smoker Alcohol use: none Drug use: none ROS unobtainable: due to mental status (And tachypnea with Cusmano breathing.) All Systems: The remainder of the systems were reviewed and are negative Physical Examination Vital Signs: Vital Signs, Last 4 Hours Resp BP 12/04/17 12:59 26 117/106 General appearance: no acute distress Eyes: nonicteric ENT: oropharynx dry Neck: supple Effort: mildly labored Auscultation: bilateral: clear Cardiovascular: regular rate and rhythm Gastrointestinal: normoactive bowel sounds, soft, tender (Generalized tenderness no localized area of abdominal tenderness.), non-distended Integumentary: normal Extremities: no cyanosis, no edema, no clubbing Musculoskeletal: no deformities, ROM normal normal mental status, non-focal exam Results - Laboratory Findings CBC and BMP: 12/04/17 06:00 12/04/17 12:30 Abnormal lab findings: Abnormal lab results WBC 22.9 K/mcL (4.3-11.1) H 12/04/17 06:00 RBC 5.22 M/mcL (3.82-4.97) H 12/04/17 06:00 Hgb 15.9 g/dL (11.5-15.4) H 12/04/17 06:00 Hct 50.5 % (35.3-44.9) H 12/04/17 06:00 MCHC 31.5 g/dL (31.6-35.5) L 12/04/17 06:00 Plt Count 790 K/mcL (140-400) H 12/04/17 06:00 MPV 8.6 fL (9.4-12.4) L 12/04/17 06:00 Neutrophils # 16.5 K/mcL (1.6-8.9) H 12/04/17 06:00 Lymphocytes # 5.1 K/mcL (0.6-4.6) H 12/04/17 06:00 VBG pH 6.89 pH Units (7.32-7.42) L* 12/04/17 12:37 VBG pCO2 22 mmHg (41-51) L 12/04/17 12:37 VBG pO2 116 mmHg (25-50) H 12/04/17 12:37 VBG HCO3 4 mEq/L (21-27) L 12/04/17 12:37 Chloride 109 mEq/L (98-107) H 12/04/17 08:14 Carbon Dioxide 3 mEq/L (23-29) L* 12/04/17 10:35 Glucose 541 mg/dL (70-105) H* 12/04/17 10:35 Calculated Osmolality 314 (280-300) H 12/04/17 08:14 Calcium 6.5 mg/dL (8.6-10.3) L 12/04/17 10:35 Total Bilirubin 0.2 mg/dL (0.3-1.0) L 12/04/17 08:14 AST 50 Units/L (13-39) H 12/04/17 08:14 Alkaline Phosphatase 127 Units/L (34-104) H 12/04/17 08:14 Lipase < 3 Units/L (11-82) L 12/04/17 06:00 Urine Clarity Cloudy (Clear) A 12/04/17 07:33 Ur Specific Proctor 1.027 (1.010-1.025) H 12/04/17 07:33 Urine Protein 30 mg/dL (Neg-Trace) H 12/04/17 07:33 Urine Glucose (UA) >=1000 mg/dL (Normal) H 12/04/17 07:33 Urine Ketones >=160 mg/dL (Negative) H 12/04/17 07:33 Urine Blood Large (Negative) H 12/04/17 07:33 Ur Leukocyte Esterase Small (Negative) H 12/04/17 07:33 Urine Microscopic RBC 50-100 per hpf (0-3) H 12/04/17 07:33 Urine Microscopic WBC 15-30 per hpf (0-3) H 12/04/17 07:33 Ur Squamous Epith Cells Many per lpf (None-Few) H 12/04/17 07:33 Ur Culture Indicated? NO. (NO) A 12/04/17 07:33 - Diagnostic Findings Chest x-ray: report reviewed, image reviewed
[2017-12-04] MEDS ORDERED: 0.9 % Sodium Chloride 1,000 ML IVC SCH (13:30)
[2017-12-04] MEDS: 0.45 % Sodium Chloride w/KCl 20 MEQ/1,000 ML MLS IVC SCH ×11 (14:08→19:34)
[2017-12-04 14:19] LABS: BUN/Creatinine Ratio 22 (6-26); Chloride 115 mEq/L (98-107); Osmolality,Calculated 321 (280-300); Potassium 3.7 mEq/L (3.5-5.1); Sodium 142 mEq/L (136-145); eGFR For African Americans > 60 (> 60); eGFR For Non-African Americans > 60 (> 60)
[2017-12-04 14:23] LABS: BUN/Creatinine Ratio 23 (6-26); Blood Urea Nitrogen 15 mg/dL (6-20); Calcium 5.3 mg/dL (8.6-10.3); Carbon Dioxide 4 mEq/L (23-29); Chloride 118 mEq/L (98-107); Glucose 304 mg/dL (70-105); Osmolality,Calculated 304 (280-300); Potassium 3.4 mEq/L (3.5-5.1); Sodium 141 mEq/L (136-145); eGFR For African Americans > 60 (> 60); eGFR For Non-African Americans > 60 (> 60)
[2017-12-04] MEDS: D5% in 0.45% NACL w KCl 20 MEQ/1,000 ML MLS IVC PRN ×3 (15:14→23:27)
[2017-12-04 15:24] LABS: VBG HCO3 5 mEq/L (21-27); VBG PCO2 21 mmHg (41-51); VBG PH 7.02 pH Units (7.32-7.42); VBG PO2 83 mmHg (25-50)
[2017-12-04 17:11] LABS: BUN/Creatinine Ratio 19 (6-26); Blood Urea Nitrogen 11 mg/dL (6-20); Calcium 5.4 mg/dL (8.6-10.3); Carbon Dioxide 6 mEq/L (23-29); Chloride 117 mEq/L (98-107); Glucose 143 mg/dL (70-105); Osmolality,Calculated 288 (280-300); Potassium 3.2 mEq/L (3.5-5.1); Sodium 138 mEq/L (136-145); eGFR For African Americans > 60 (> 60); eGFR For Non-African Americans > 60 (> 60)
--- NOTE | 2017-12-04 19:09 | Electrocardiograph Report ---
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
[2017-12-04] MEDS ORDERED: Acetaminophen 325 MG TABLET PO PRN (21:15)
[2017-12-04 21:23] LABS: BUN/Creatinine Ratio 13 (6-26); Blood Urea Nitrogen 8 mg/dL (6-20); Calcium 5.5 mg/dL (8.6-10.3); Carbon Dioxide 10 mEq/L (23-29); Chloride 114 mEq/L (98-107); Glucose 130 mg/dL (70-105); Osmolality,Calculated 282 (280-300); Potassium 2.9 mEq/L (3.5-5.1); Sodium 136 mEq/L (136-145); eGFR For African Americans > 60 (> 60); eGFR For Non-African Americans > 60 (> 60)
[2017-12-04] MEDS ORDERED: Potassium Chloride 40 MEQ/200 ML BAG IVPB ONE (22:05)
[2017-12-04] MEDS ORDERED: Melatonin 3 MG TABLET PO ONE (23:52)
[2017-12-05] MEDS: 0.45 % Sodium Chloride w/KCl 20 MEQ/1,000 ML MLS IVC SCH ×10 (01:19→06:01)
[2017-12-05] MEDS: 0.9 % Sodium Chloride 1,000 ML IVC SCH ×10 (01:19→06:01)
[2017-12-05 01:53] LABS: BUN/Creatinine Ratio 10 (6-26); Blood Urea Nitrogen 6 mg/dL (6-20); Calcium 5.8 mg/dL (8.6-10.3); Carbon Dioxide 9 mEq/L (23-29); Chloride 115 mEq/L (98-107); Glucose 142 mg/dL (70-105); Osmolality,Calculated 280 (280-300); Potassium 3.1 mEq/L (3.5-5.1); Sodium 135 mEq/L (136-145); eGFR For African Americans > 60 (> 60); eGFR For Non-African Americans > 60 (> 60)
[2017-12-05] MEDS: Insulin Human Regular 100 UNIT in 0.9 % Sodium Chloride 100 ML IVC SCH ×2 (02:59→06:02)
[2017-12-05] MEDS: D5% in 0.45% NACL w KCl 20 MEQ/1,000 ML MLS IVC PRN (03:02)
[2017-12-05 05:34] LABS: Basophils # 0.1 K/mcL (0.0-0.2); Basophils % 0.4 %; Eosinophils % 0.2 %; Hematocrit 31.4 % (35.3-44.9); Immature Granulocytes % 0.7 % (0-4); Lymphocytes # 2.7 K/mcL (0.6-4.6); Lymphocytes % 20.8 %; Mean Corpuscular HGB Conc 32.5 g/dL (31.6-35.5); Mean Corpuscular Hemoglobin 29.7 pg (28.0-33.3); Mean Corpuscular Volume 91.5 fL (83.0-100.0); Mean Platelet Volume 8.2 fL (9.4-12.4); Monocytes # 0.9 K/mcL (0.0-1.3); Monocytes % 6.8 %; Neutrophils # 9.3 K/mcL (1.6-8.9); Platelet Count 380 K/mcL (140-400); Red Blood Count 3.43 M/mcL (3.82-4.97); Red Cell Distribution Width 13.1 % (11.5-14.5); Segmented Neutrophils % 71.1 %
[2017-12-05 05:35] LABS: VBG HCO3 12 mEq/L (21-27); VBG PCO2 30 mmHg (41-51); VBG PH 7.21 pH Units (7.32-7.42); VBG PO2 95 mmHg (25-50)
[2017-12-05 05:35] LABS: Hemoglobin 10.2 g/dL (11.5-15.4)
[2017-12-05 05:51] LABS: BUN/Creatinine Ratio 10 (6-26); Blood Urea Nitrogen 5 mg/dL (6-20); Calcium 6.5 mg/dL (8.6-10.3); Carbon Dioxide 13 mEq/L (23-29); Chloride 112 mEq/L (98-107); Glucose 156 mg/dL (70-105); Osmolality,Calculated 280 (280-300); Sodium 135 mEq/L (136-145); eGFR For African Americans > 60 (> 60); eGFR For Non-African Americans > 60 (> 60)
[2017-12-05] MEDS ORDERED: Dextrose Gel 15 GM/37.5 ML TUBE PO PRN ×2 (06:29→09:30)
[2017-12-05] MEDS ORDERED: D5% in Water 1,000 ML IVC PRN ×2 (06:29→09:30)
[2017-12-05] MEDS ORDERED: Insulin LISPRO 300 UNITS/3 ML VIAL SQ SCH ×5 (08:00→21:00)
--- NOTE | 2017-12-05 08:23 | Pulmonology Progress Note ---
<Elvin Blanchard - Last Filed: 12/05/17 14:20> Date of Encounter: 12/05/17 Time of Encounter: 08:23 Assessment and Plan (1) DKA (diabetic ketoacidoses) Current Visit: No Status: Resolved Patient presented bit with being a type I diabetic does use insulin unsure of how his insulin she took recently. Patient on insulin pump. Patient was shown to have a leukocytosis of 22.9 patient also found to have a tampon the patient is unsure along its been in there is very little thought towards this being toxic shock syndrome based on patient's presentation. Patient did have Kussmaul breathing on exam. Patient's original pH done via VBG was 6.77. Patient's original labs showed no hyperglycemia they did repeat him and patient' s glucose was above 300 with a bicarbonate of 3. Patient was in DKA patient was given approximately 3-4 L of IV fluid in the emergency department. Patient was also started on a bicarbonate drip after getting in an amp of bicarbonate due to patient's severe acidosis. Patient at this time did not have an abnormal potassium is BMP showed potassium level of 5.0 we do expect that he will down as patient is started on insulin bolus and changed to an insulin drip. Start DKA protocol with IV fluid, IV insulin changing to maintenance insulin. Potassium did have to be replaced due to protocol as patient's potassium to drop to 3.2. Bicarbonate drip was stopped as patient's pH is now below 7. Patient did get vancomycin and Zosyn in the emergency department for possible infectious causes. Blood and urine cultures are pending Patient Has close insulin drip was stopped and we started her on her normal long -acting dose of 25 units twice daily of Levemir. Patient also getting at [place] doses as well as sliding scale doses of insulin. Patient can now be transferred out of the ICU to a telemetry floor due to patient's hypokalemia. This was done and sign out was given. Patient was hungry so I did order an ADA diet. Also Zofran added as patient was mildly nauseous Qualifiers: Diabetes mellitus type: type 1 Diabetes mellitus complication detail: without coma Qualified Code(s): E10.10 - Type 1 diabetes mellitus with ketoacidosis without coma (2) Leucocytosis Current Visit: No Status: Resolved Patient did have a leukocytosis of 22.9 this could be due to stress reaction from the DKA but also could be infectious/inflammatory causes which could cause patient to go into DKA. Patient was given vancomycin and Zosyn in the emergency department. Blood cultures and urine cultures are still pending. Qualifiers: Leukocytosis type: unspecified Qualified Code(s): D72.829 - Elevated white blood cell count, unspecified (3) Metabolic acidosis due to diabetes mellitus Current Visit: No Status: Resolved Patient was metabolic acidosis most likely secondary to DKA. Did give bicarbonate amp and drip until pH of 7.0. Patient did have an open anion gap originally of 24 as patient's bicarbonate was 3. Patient has normal renal function. We will continue to give insulin until patient Karely gap closes. Continue DKA protocol Subjective Principal diagnosis: DKA Interval history: Patient seen and evaluated today by myself and the attending. Patient's chart, images, labs were reviewed. There is no acute events overnight. Patient's Did close and insulin was stopped. At this time patient is no ironing ICU care and the plan is to transfer out today. Patient does feel like she can eat. Although she is mildly nauseous she will pretreat with Zofran. We will attempt to transfer patient have ICU for telemetry care Objective PUL Vital signs: Last Vital Signs Temp 98.3 F 12/05/17 04:34 Pulse 100 12/05/17 08:00 Resp 16 12/05/17 08:00 BP 100/73 12/05/17 08:00 Pulse Ox 96 12/05/17 08:00 General appearance: no acute distress Eyes: nonicteric ENT: oropharynx moist Neck: supple Effort: normal Auscultation: bilateral: clear Cardiovascular: regular rate and rhythm Gastrointestinal: normoactive bowel sounds, non-distended Integumentary: normal Extremities: no cyanosis, no edema, no clubbing Musculoskeletal: no deformities, ROM normal normal mental status, non-focal exam, pupils equal and round, motor strength normal and symmetric Results - Laboratory Findings CBC and BMP: 12/05/17 04:00 12/05/17 04:00 Abnormal lab findings: Abnormal lab results WBC 13.0 K/mcL (4.3-11.1) H 12/05/17 04:00 RBC 3.43 M/mcL (3.82-4.97) L 12/05/17 04:00 Hgb 10.2 g/dL (11.5-15.4) L D 12/05/17 04:00 Hct 31.4 % (35.3-44.9) L 12/05/17 04:00 MPV 8.2 fL (9.4-12.4) L 12/05/17 04:00 Neutrophils # 9.3 K/mcL (1.6-8.9) H 12/05/17 04:00 VBG pH 7.21 pH Units (7.32-7.42) L 12/05/17 05:29 VBG pCO2 30 mmHg (41-51) L 12/05/17 05:29 VBG pO2 95 mmHg (25-50) H 12/05/17 05:29 VBG HCO3 12 mEq/L (21-27) L 12/05/17 05:29 Sodium 135 mEq/L (136-145) L 12/05/17 04:00 Potassium 3.0 mEq/L (3.5-5.1) L 12/05/17 04:00 Chloride 112 mEq/L (98-107) H 12/05/17 04:00 Carbon Dioxide 13 mEq/L (23-29) L 12/05/17 04:00 BUN 5 mg/dL (6-20) L 12/05/17 04:00 Creatinine 0.51 mg/dL (0.60-1.20) L 12/05/17 04:00 Glucose 156 mg/dL (70-105) H 12/05/17 04:00 POC Glucose 149 mg/dL (70-99) H 12/05/17 06:18 Calcium 6.5 mg/dL (8.6-10.3) L 12/05/17 04:00 Total Bilirubin 0.2 mg/dL (0.3-1.0) L 12/04/17 08:14 AST 50 Units/L (13-39) H 12/04/17 08:14 Alkaline Phosphatase 127 Units/L (34-104) H 12/04/17 08:14 Lipase < 3 Units/L (11-82) L 12/04/17 06:00 Urine Clarity Cloudy (Clear) A 12/04/17 07:33 Ur Specific [place]low 1.027 (1.010-1.025) H 12/04/17 07:33 Urine Protein 30 mg/dL (Neg-Trace) H 12/04/17 07:33 Urine Glucose (UA) >=1000 mg/dL (Normal) H 12/04/17 07:33 Urine Ketones >=160 mg/dL (Negative) H 12/04/17 07:33 Urine Blood Large (Negative) H 12/04/17 07:33 Ur Leukocyte Esterase Small (Negative) H 12/04/17 07:33 Urine Microscopic RBC 50-100 per hpf (0-3) H 12/04/17 07:33 Urine Microscopic WBC 15-30 per hpf (0-3) H 12/04/17 07:33 Ur Squamous Epith Cells Many per lpf (None-Few) H 12/04/17 07:33 Ur Culture Indicated? NO. (NO) A 12/04/17 07:33 - Diagnostic Findings Chest x-ray: report reviewed, image reviewed - Clinical Findings Intake & Output: Intake & Output 12/04/17 12/05/17 12/05/17 23:59 07:59 15:59 Intake Total 2254 / 2254 1147 / 1147 0 / 0 Output Total 2925 / 2925 525 / 525 Balance -671 / -671 622 / 622 0 / 0 - VTE Documentation of Mechanical Device: Intermittent pneumatic compression device Consult Discharge Plan - Plan Referrals: NONE,PCP [Primary Care Provider] - <Christine Win - Last Filed: 12/05/17 16:55> Date of Encounter: 12/05/17 Objective PUL Vital signs: Last Vital Signs Temp 98.2 F 12/05/17 15:55 Pulse 107 12/05/17 15:55 Resp 18 12/05/17 15:55 BP 111/72 12/05/17 15:55 Pulse Ox 96 12/05/17 15:55 Results - Laboratory Findings CBC and BMP: 12/05/17 04:00 12/05/17 04:00 Abnormal lab findings: Abnormal lab results WBC 13.0 K/mcL (4.3-11.1) H 12/05/17 04:00 RBC 3.43 M/mcL (3.82-4.97) L 12/05/17 04:00 Hgb 10.2 g/dL (11.5-15.4) L D 12/05/17 04:00 Hct 31.4 % (35.3-44.9) L 12/05/17 04:00 MPV 8.2 fL (9.4-12.4) L 12/05/17 04:00 Neutrophils # 9.3 K/mcL (1.6-8.9) H 12/05/17 04:00 VBG pH 7.21 pH Units (7.32-7.42) L 12/05/17 05:29 VBG pCO2 30 mmHg (41-51) L 12/05/17 05:29 VBG pO2 95 mmHg (25-50) H 12/05/17 05:29 VBG HCO3 12 mEq/L (21-27) L 12/05/17 05:29 Sodium 135 mEq/L (136-145) L 12/05/17 04:00 Potassium 3.0 mEq/L (3.5-5.1) L 12/05/17 04:00 Chloride 112 mEq/L (98-107) H 12/05/17 04:00 Carbon Dioxide 13 mEq/L (23-29) L 12/05/17 04:00 BUN 5 mg/dL (6-20) L 12/05/17 04:00 Creatinine 0.51 mg/dL (0.60-1.20) L 12/05/17 04:00 Glucose 156 mg/dL (70-105) H 12/05/17 04:00 Calcium 6.5 mg/dL (8.6-10.3) L 12/05/17 04:00 Total Bilirubin 0.2 mg/dL (0.3-1.0) L 12/04/17 08:14 AST 50 Units/L (13-39) H 12/04/17 08:14 Alkaline Phosphatase 127 Units/L (34-104) H 12/04/17 08:14 Lipase < 3 Units/L (11-82) L 12/04/17 06:00 Urine Clarity Cloudy (Clear) A 12/04/17 07:33 Ur Specific [place] 1.027 (1.010-1.025) H 12/04/17 07:33 Urine Protein 30 mg/dL (Neg-Trace) H 12/04/17 07:33 Urine Glucose (UA) >=1000 mg/dL (Normal) H 12/04/17 07:33 Urine Ketones >=160 mg/dL (Negative) H 12/04/17 07:33 Urine Blood Large (Negative) H 12/04/17 07:33 Ur Leukocyte Esterase Small (Negative) H 12/04/17 07:33 Urine Microscopic RBC 50-100 per hpf (0-3) H 12/04/17 07:33 Urine Microscopic WBC 15-30 per hpf (0-3) H 12/04/17 07:33 Ur Squamous Epith Cells Many per lpf (None-Few) H 12/04/17 07:33 Ur Culture Indicated? NO. (NO) A 12/04/17 07:33 - Clinical Findings Intake & Output: Intake & Output 12/05/17 12/05/17 12/05/17 07:59 15:59 23:59 Intake Total 1147 / 1147 0 / 0 480 / 480 Output Total 525 / 525 1025 / 1025 900 / 900 Balance 622 / 622 -1025 / -1025 -420 / -420 Weight 78.94 kg - Attending Attestation I examined this patient and my medical decision-making was reviewed with the Resident Physician. I agree with the documented findings, disposition and treatment plan as described except to the extent set forth below. Patient seen and examined. Labs, radiology, chart personally reviewed. Agree with resident's history and physical, assessment, plan with following comments: [employer] ASSOCIATE: Patient follows commands, Pulmonary: Acceptable oxygenation and ventilation Cardiovascular: stable GI: Nutrition per dietary and GI prophylaxis per routine Heme: DVT prophylaxis per routine Renal; urine out put and renal funtion reviewed Endorcine: blood glucose is monitored. Patient is on DKA protocol and to transition to oral and to follow up with primary care with checking hemoglobin A1c. Lines: all lines checked and no evidence of infections Skin: skin care to prevent pressure ulcers per nursing routine care
[2017-12-05] MEDS ORDERED: Insulin DETEMIR 100 UNIT/ML X5UNITS SQ SCH ×2 (09:00→21:00)
[2017-12-05] MEDS ORDERED: Naloxone 0.4 MG/ML INJ IVP PRN (09:30)
[2017-12-05] MEDS ORDERED: *HR* Dextrose 50 % in Water (Syg) 50 ML SYRINGE IVP PRN ×3 (09:30)
[2017-12-05] MEDS: Ondansetron 4 MG/2 ML VIAL IVP PRN (09:44)
[2017-12-05] MEDS: Acetaminophen 325 MG TABLET PO PRN ×2 (11:55→17:23)
[2017-12-05] MEDS: Insulin LISPRO 300 UNITS/3 ML VIAL SQ SCH ×4 (13:56→21:16)
[2017-12-05] MEDS: Insulin DETEMIR 100 UNIT/ML X5UNITS SQ SCH (21:17)
[2017-12-05] MEDS ORDERED: SUMAtriptan succinate 50 MG TABLET PO ONE (21:58)
[2017-12-06] MEDS: Ondansetron 4 MG/2 ML VIAL IVP PRN (00:52)
[2017-12-06 05:18] LABS: Basophils % 0.3 %; Eosinophils % 0.3 %; Hematocrit 33.6 % (35.3-44.9); Hemoglobin 11.1 g/dL (11.5-15.4); Immature Granulocytes % 0.3 % (0-4); Lymphocytes # 3.2 K/mcL (0.6-4.6); Mean Corpuscular Hemoglobin 29.3 pg (28.0-33.3); Mean Corpuscular Volume 88.7 fL (83.0-100.0); Mean Platelet Volume 8.3 fL (9.4-12.4); Monocytes # 0.7 K/mcL (0.0-1.3); Monocytes % 6.7 %; Platelet Count 346 K/mcL (140-400); Red Blood Count 3.79 M/mcL (3.82-4.97); Red Cell Distribution Width 12.8 % (11.5-14.5); Segmented Neutrophils % 60.4 %
[2017-12-06 05:20] LABS: VBG Ionized Calcium 1.03 mmol/L (1.15-1.35)
[2017-12-06 05:36] LABS: BUN/Creatinine Ratio 8 (6-26); Blood Urea Nitrogen 4 mg/dL (6-20); Carbon Dioxide 19 mEq/L (23-29); Chloride 106 mEq/L (98-107); Glucose 183 mg/dL (70-105); Potassium 3.1 mEq/L (3.5-5.1); Sodium 141 mEq/L (136-145); eGFR For African Americans > 60 (> 60); eGFR For Non-African Americans > 60 (> 60)
[2017-12-06 05:37] LABS: Calcium 8.2 mg/dL (8.6-10.3); Osmolality,Calculated 294 (280-300)
[2017-12-06 07:40] VITALS: BP 110/75
[2017-12-06] MEDS: Insulin LISPRO 300 UNITS/3 ML VIAL SQ SCH ×2 (07:58→07:59)
[2017-12-06] MEDS: Insulin DETEMIR 100 UNIT/ML X5UNITS SQ SCH (07:59)
--- NOTE | 2017-12-06 10:48 | Internal Med Progress Note ---
Date of Encounter: 12/06/17 - Subjective Interval history: Ms. Dc is a 22 Yo f who presented to the ED on 12/04 and was diagnosed with DKA. Initial blood glucose was 123 but two hours later was found to be 641. This spike is believed to be due to lab error per the resident. She has had prior episodes related to her menses which was occuring at the time of ED visit. She denies any changes in insulin regimen near the time of onset. Today she complains of generalized fatigue with whole body soreness that has not been present with prior episodes of DKA. This has improved significantly since yesterday. Admits feeling better than previous days. She remains nauseous and vomited once last night. nonbloody. She reports decreased appetite throughout entire hospital visit which is atypical of her prior DKA episodes. She complains of acid reflux symptoms since last night. She complains of "migraine" headache. She has headaches most days of the year, some worse than others. The current type of headache has increased in frequency over the past few weeks. She has had prior episodes of this type of headache lasting for longer than two weeks. The acetaminophen helps very little, depacote has not helped. constant, current, "searing", "blinding" mostly above the R eye on the forehead but spreads to b/l forehead. photosensitivity and phonophobia accompany. patient does not know whether these are accompanied by lacrimation. denies nasal drainage. often feels they make her cognitively impaired. She does not feel impaired now. Admits one episode of pounding heart that lasted about one minute this morning. no pain associated. Denies burning with urination. admits swelling. denies recent use of alcohol, tobacco, or illicit drugs. Sexually active with only non-new boyfriend who was just diagnosed with Herpes and placed on acyclovir. He was under the patient's care for a flu-like illness at time of onset of her DKA episode. - Constitutional Vitals: Temp Pulse Resp BP Pulse Ox 98.5 F 87 18 110/75 97 12/06/17 07:36 12/06/17 07:36 12/06/17 07:36 12/06/17 07:36 12/06/17 07:36 Internal Medicine: Result - Labs CBC & Chem 7: 12/06/17 05:07 12/06/17 05:07 Labs: Short CBC 12/06/17 Range/Units 05:07 WBC 10.0 (4.3-11.1) K/mcL Hgb 11.1 L (11.5-15.4) g/dL Hct 33.6 L (35.3-44.9) % Plt Count 346 (140-400) K/mcL Neutrophils # 6.0 (1.6-8.9) K/mcL BMP 12/06/17 05:07 Sodium 141 Potassium 3.1 L Chloride 106 Carbon Dioxide 19 L BUN 4 L Creatinine 0.53 L Glucose 183 H Calcium 8.2 L - VTE Documentation of Mechanical Device: Intermittent pneumatic compression device Consult Discharge Plan - Plan Referrals: Osorio Vasques CNP [Non-Partnered Physician] - 12/12/17 2:00 pm
--- NOTE | 2017-12-06 10:53 | Discharge Summary ---
<Palmer Peters - Last Filed: 12/06/17 10:54> Orders not resulted at time of discharge: Pending orders 12/07/17 04:00 BMP [Basic Metabolic Panel] AM 0400 Complete Blood Count [HEME] AM 0400 Date of Encounter: 12/06/17 Hospital course: Ms. Dc is a 22 year old female - Time Spent with Patient Total time spent providing and/or coordinating discharge services: - Discharge Medications Prescriptions: Blood Sugar Diagnostic [Test Strips] 1 each QID #120 strip Omeprazole [PriLOSEC] 20 mg PO DAILY@0730 #30 capsule. Potassium Chloride 20 meq PO DAILY #5 tab.er.prt Home Medications: Insulin ASPART [Novolog Flexpen] 0 unit SQ TID 11/26/15 [History] Insulin Glargine,Hum.rec.anlog [Basaglar Kwikpen U-100] 50 unit SQ QPM 10/27/17 [History] Divalproex Sodium [Depakote] 250 mg PO BID 12/04/17 [History] Blood Sugar Diagnostic [Test Strips] 1 each QID #120 strip 12/06/17 [Rx] Omeprazole [PriLOSEC] 20 mg PO DAILY@0730 #30 capsule. 12/06/17 [Rx] Potassium Chloride 20 meq PO DAILY #5 tab.er.prt 12/06/17 [Rx] Allergies/Adverse Reactions: 3 Allergy/AdvReac Type Severity Reaction Status Date / Time trazodone Allergy See Verified 11/26/15 09:51 Comments Date of admission: 12/04/17 12:41 Primary care physician: PCP NONE Consults: 12/04/17 13:19 Consult for Pharmacy Education [CONS] Routine Reason for Consult: Insulin education Call Completed: No - Constitutional Vitals: Temp Pulse Resp BP Pulse Ox 98.5 F 87 18 110/75 97 12/06/17 07:36 12/06/17 07:36 12/06/17 07:36 12/06/17 07:36 12/06/17 07:36 - Patient Status Disposition: Home, Self-Care Condition: Good - Discharge Instructions Instructions: Potassium Chloride (By mouth), Omeprazole (By mouth), Diabetes Mellitus Type 2 in Adults (DC) Follow Up With: Osorio Vasques [employer] [Non-Partnered Physician] - 12/12/17 2:00 pm <Darian Longoria Aliya - Last Filed: 12/06/17 15:56> - NOTES TO OUTPATIENT PROVIDER Notes to Outpatient Provider: Ms. Dc is a 22 Yo f who presented to our ED on 12/04 and was diagnosed with DKA. Initial reliable blood glucose was 641. She was treated with sodium bicarb, sodium chloride, potassium chloride, IV regular insulin. anion gap resolved on 12/05 (17 on admission and 8 on 12/05). Added medications at discharge include prescription omeprazole and potassium chloride. continue home insulin regimen of ASPART, Glargine. BMP to be performed in one week for electrolyte status. Orders not resulted at time of discharge: Pending orders 12/07/17 04:00 BMP [Basic Metabolic Panel] AM 0400 Complete Blood Count [HEME] AM 0400 Date of Encounter: 12/06/17 Time of Encounter: 09:30 - Discharge Diagnosis (1) DKA (diabetic ketoacidoses) Priority: Primary Status: Resolved Assessment and Plan: DKA menses related, suspected noncompliance due to HbA1c blood glucose 641 in ED. anion gap metabolic acidosis. urine glucose >1000 and urine ketones >160. Kussmaul breathing in ED per pulmonolgist report. treated with sodium bicarb, sodium chloride, potassium chloride, IV regular insulin. anion gap resolved on 12/05. continue home insulin regimen of ASPART, Glargine on a sliding scale. patient discharged on potassium chloride. patient to have CMP in one week to check electrolytes (discharge potassium 3.1) . plans to follow up with intermodal dispatcher. Qualifiers: Diabetes mellitus type: type 1 Diabetes mellitus complication detail: without coma Qualified Code(s): E10.10 - Type 1 diabetes mellitus with ketoacidosis without coma (2) Metabolic acidosis due to diabetes mellitus Priority: Secondary Status: Acute Assessment and Plan: metabolic acidosis diabetes mellitis initial labs: anion gap: 17, pH 7.02, paCO2 21, HCO3 5. Kusmal breathing per caregiver report. treated with sodium bicarb, sodium chloride, potassium chloride, IV regular insulin. anion gap resolved on 12/05. last pH taken on 12/05 was 7.21. Added medications at discharge include omeprazole and potassium chloride. continue home insulin regimen of ASPART, Glargine. (3) Leucocytosis Priority: Secondary Status: Resolved Assessment and Plan: Leukocytosis Likely DKA induced. concern for infection/ Staph Aureus toxic shock syndrome due to tampon use of unknown duration, but ruled out based on review of ED report and WBC < 25. blood cultures pending. Vancomycin 1000 mg IV once and Pip/Tazo 3.375 gm IV once day #1. were discontinued hours after ordered. WBC 22.9 in ED. lab on 12/06 showed temp of 98.5 and WBC 10. patient did not appear toxic on final exam. Qualifiers: Leukocytosis type: unspecified Qualified Code(s): D72.829 - Elevated white blood cell count, unspecified (4) Abdominal pain Priority: Secondary Status: Acute Assessment and Plan: abdominal pain secondary to suspected enteritis per CT abd patient had nausea and vomiting with stomach pain that improved over course of visit Ondansetron and tums. Vancomycin and zosin given, no need to continue. followup with PCP Qualifiers: Abdominal location: epigastric Qualified Code(s): R10.13 - Epigastric pain (5) GERD (gastroesophageal reflux disease) Priority: Secondary Status: Acute Assessment and Plan: GERD revealed by CT abd. patient had symptoms of reflux as well as stomach pain Prilosec given for home use follow up with PCP. may need EGD in the future. Qualifiers: Esophagitis presence: with esophagitis Qualified Code(s): K21.0 - Gastro- esophageal reflux disease with esophagitis Hospital course: Ms. Dc is a 22 Yo f who presented to our ED on 12/04 and was diagnosed with DKA. Initial reliable blood glucose was 641. She was treated with sodium bicarb , sodium chloride, potassium chloride, IV regular insulin. anion gap resolved on 12/05. Added medications at discharge include omeprazole and potassium chloride. Continue home insulin regimen of ASPART, Glargine. - Time Spent with Patient Total time spent providing and/or coordinating discharge services: Greater than 30 minutes Date of admission: 12/04/17 12:41 Primary care physician: PCP NONE Consults: 12/04/17 13:19 Consult for Pharmacy Education [CONS] Routine Reason for Consult: Insulin education Call Completed: No - Constitutional Vitals: Temp Pulse Resp BP Pulse Ox 98.5 F 87 18 110/75 97 12/06/17 07:36 12/06/17 07:36 12/06/17 07:36 12/06/17 07:36 12/06/17 07:36 Exam: PE general: young f in no acute distress. HEENT: head symmetric. tender to palpation over the R parietal bone, frontal and maxillary sinuses, cervical spine. neck: tender in area of central line placement heart: tachycardic. no murmur gallop or rub. radial and dorsalis pedis 2+. lungs: CTA throughout. abd: no jaundice or distension. hypoactive bowel sounds. no bruits. mildly tender to palpation of R lower quadrant. patient states this is not atypical for her. no hepatosplenomegaly or masses. MSK: nonpitting edema of upper and lower Ext. neuro: CN 2-12 intact. sensation intact to light touch upper and lower Ext. - VTE Documentation of Mechanical Device: Intermittent pneumatic compression device <Tiburcio Lantigua - Last Filed: 12/06/17 16:13> Date of Encounter: 12/06/17 Hospital course: Ms. Dc is a 22 year old female - Time Spent with Patient Total time spent providing and/or coordinating discharge services: Date of admission: 12/04/17 12:41 Primary care physician: PCP NONE Consults: 12/04/17 13:19 Consult for Pharmacy Education [CONS] Routine Reason for Consult: Insulin education Call Completed: No - Constitutional Vitals: Temp Pulse Resp BP Pulse Ox 98.5 F 87 18 110/75 97 12/06/17 07:36 12/06/17 07:36 12/06/17 07:36 12/06/17 07:36 12/06/17 07:36 - Attending Attestation I examined this patient and my medical decision-making was reviewed with the Resident Physician Dr. Peters. I agree with the documented findings, disposition and treatment plan as described except to the extent set forth below. Ms. Gonzalez is a 22 y/o F known DM1, chronic migraine and BiPolar pt admitted into ICU for DKA. She was placed on Insulin gtt and aggressive IV hydration. Her symptoms improved and anion gap resolved. She is tolerating PO Intake well and her BS are well controlled with ISS and Levemir. So will d/c her home in stable condition today. Gen: A, A, O x3 Chest: CTA Heart: S1S2+ RRR
== END 2017-12-06 12:38 | disposition home or self-care (01) | DRG 420 ==
LOC: EMEROO 05:24 → ICNU 12:41 → 2NENU 12-05 11:24
PROVIDERS: ADMIT Internal Medicine Pulmonary Disease; ATTEND Internal Medicine